=== PATIENT | female | born 1940 | race Caucasian/White ===

== ENCOUNTER 2019-12-17 12:18 | Inpatient (IN) ==
--- NOTE | 2019-12-17 12:43 | Emergency Department Note ---
Impression & Plan Hip fracture, right, Dementia ED Provider Note NAME: LAZARA VALLEJO AGE: 79 SEX: F : 1940 ARRIVES VIA: Ambulance INFORMANT: Patient ED PROVIDER(S): Pritesh Dumont DO CHIEF COMPLAINT: Fall down steps HPI: Patient is a 79-year-old female who lives at home with her son with a past medical history of dementia that presents the ER for a fall. She notes she was walking down the steps carrying stuff in her arms when she lost her balance and fell backwards. She hit her head off the step and is having right hip pain. She has no other complaints. She describes her pain as a 5 out of 10. Pain is worsened with movement of her right hip. Rest improves the pain. She denies any headache change in vision, chest pain shortness of breath nausea vomiting or diarrhea. No dysuria urgency or frequency. She notes that she does have a bump on her head. She notes that this occurred just prior to arrival [place] [address] [place]. ROS: See above HPI for pertinent positives & negatives. A total of 10 systems reviewed and were otherwise negative. PAST MEDICAL HISTORY:See Below PAST SURGICAL HISTORY:See Below FAMILY HISTORY:See Below SOCIAL HISTORY:See Below HOME MEDICATIONS:See Below ALLERGIES:See Below VITALS:See Below PHYSICAL EXAMINATION: GENERAL: alert, well appearing, well nourished, no distress, non-toxic HEAD: Contusion in the right occiput. EYE EXAM: normal conjunctiva, PERRL and EOM's grossly intact OROPHARYNX: no exudate, no erythema, lips, buccal mucosa, and tongue normal and mucous membranes are moist NECK: supple, no nuchal rigidity, no adenopathy, non-tender CHEST: stable to compression anteriorly and posteriorly LUNGS: clear to auscultation. Normal chest wall mechanics HEART: no murmurs, S1 normal and S2 normal ABDOMEN: abdomen soft, non-tender, normo-active bowel sounds, no masses, no rebound or guarding. PELVIS: stable to compression anteriorly and posteriorly BACK: Back is symmetrical on inspection and there is no deformity, no midline tenderness, no CVA tenderness. UPPER EXTREMITIES: full active and passive range of motion of all joints without tenderness to palpation LOWER EXTREMITIES: Full active and passive range of motion without tenderness of the left hip knee ankle. Right ankle and knee intact. Right hip is externally rotated. Moderate pain with range of motion. DP 2 out of 4. Gross sensation intact. Able to wiggle toes. NEURO EXAM: At baseline answering questions appropriately, cranial nerves II-XII grossly intact, normal speech, no gross weakness of arms, no gross weakness of legs. GCS: 15. MEDICAL DECISION MAKING: Patient is an 79-year-old female who presents the ER as she was walking down steps carrying stuff in her arms and she slipped and fell. She notes she did not lose consciousness. Her daughter did not witness it but was about 5 feet away. She fell down on her back and her head hit the wall. She complaining of right hip pain. IV was established blood work was obtained. Labs show no significant leukocytosis or anemia. BMP along with LFTs bilirubin was unremarkable. UA was negative. CT of the head and cervical spine showed no acute fractures. X-ray of the pelvis shows right inner troches fracture. Daughter was updated bedside. Discussed with hospitalist as well as Dr. Moss from [facility]. Patient was admitted for a right hip fracture. Triage Nursing notes reviewed. Prior medical records reviewed Vital Signs: reviewed and remarkable for no significant abnormalities Differential diagnosis: Differential diagnoses include major intracranial, cervical, spinal, thoracic, abdominal, pelvic and neurologic injury. Fracture, contusion, sprain, strain, laceration, abrasions included as well. ER treatment provided: See below Diagnostics interpreted by me: ECG: none Cardiac Monitoring: An order was placed for continuous cardiac monitoring. The monitor shows a rate of 71 with sinus rhythm. Laboratory studies: As stated above and show below. Imaging studies: CT of the head and cervical spine showed no acute fractures. X-ray of the pelvis and hip show right inner troches fracture. Consultation(s): Discussed with Dr. Pollock from [facility] [place] Discussed with orthopedics. 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 Beliefs That Will Affect Care: None Current Living Situation: Family Current Living Situation Comment: lives with daughter and her fiancee, and son Other Information That Helps Us Care for You: No Feels Safe at Home: Yes Safety Concerns: Feels Safe At This Time Smoking Status: Never smoker Do You Dip or Chew Tobacco: No ; Second Hand Exp osure: No ; Tobacco Cessation Education Requested by Patient: No Hx Alcohol Use: No Hx Substance Use: No Allergies Allergies Allergy/AdvReac Type Severity Reaction Status Date / Time No Known Allergies Allergy Unknown Verified 12/17/19 13:21 Home Meds Home Medications Medication Instructions Recorded Confirmed metoprolol succinate [Toprol XL] 50 mg PO DAILY #0 03/21/06 12/17/19 spironolacton-hydrochlorothiaz 1 tab PO DAILY #0 03/21/06 12/17/19 [Aldactazide] memantine [Namenda] 10 mg PO BID 12/17/19 12/17/19 mirtazapine [Remeron] 30 mg PO HS 12/17/19 12/17/19 quetiapine [Seroquel] 25 mg PO BID 12/17/19 12/17/19 Results & Data (ED) Vital Signs Vital Signs - 24 hr 12/17/19 12:29 Temperature 36.5 C Temperature Source Oral Pulse Rate 76 Pulse Rhythm Regular Pulse Strength Normal Respiratory Rate 20 Respiratory Effort / Characteristics Non-Labored Spontaneous Respiratory Depth Normal Respiratory Pattern Regular Blood Pressure 143/77 H Blood Pressure Mean 99 Pulse Oximetry 98 Oxygen Delivery Method Room Air Sepsis Recent Fever Within 48 Hours No Sepsis Action Taken by Nursing No Action Required Laboratory Data Result diagrams: 12/17/19 13:52 12/17/19 13:52 Lab Results 12/17/19 12/17/19 Range/Units 13:52 13:52 WBC 11.57 H (4.8-10.8) K/uL RBC 4.56 (4.2-5.4) M/uL Hgb 13.6 (12.0-16.0) g/dL Hct 41.3 (37-47) % MCV 90.6 (80-100) fL MCH 29.8 (25-34) pg MCHC 32.9 (32-36) g/dL RDW Std Deviation 45.7 (36.4-46.3) fL RDW Coeff of Cydni 13.8 (11.5-14.5) % Plt Count 262 (130-400) K/uL MPV 10.2 (7.4-10.4) fL Immature Gran % (Auto) 0.3 % Neut % (Auto) 82.5 % Lymph % (Auto) 10.0 % Stephens % (Auto) 7.0 % Eos % (Auto) 0.2 % Baso % (Auto) 0.0 % Immature Gran # (Auto) 0.04 H (0.00-0.02) K/uL Neut # (Auto) 9.54 H (1.4-6.5) K/uL Lymph # (Auto) 1.16 L (1.2-3.4) K/uL Stephens # (Auto) 0.81 H (0.11-0.59) K/uL Eos # (Auto) 0.02 (0-0.5) K/uL Baso # (Auto) 0.00 (0-0.2) K/uL Sodium 141 (136-145) mmol/L Potassium 3.8 (3.5-5.1) mmol/L Chloride 106 (98-107) mmol/L Carbon Dioxide 27 (21-32) mmol/L Anion Gap 8.0 (3-11) BUN 23 H (7-18) mg/dl Creatinine 1.18 (0.6-1.2) mg/dl Est Cr Clr Drug Dosing 33.9 ml/min Est GFR ( Amer) 50.1 Est GFR (Non-Af Amer) 43.2 BUN/Creatinine Ratio 19.4 (10-20) Glucose 94 (70-99) mg/dl Calcium 9.9 (8.5-10.1) mg/dl Total Bilirubin 0.5 (0.2-1) mg/dl AST 17 (15-37) U/L ALT 23 (12-78) U/L Alkaline Phosphatase 79 (45-117) U/L Total Protein 8.0 (6.4-8.2) gm/dl Albumin 3.8 (3.4-5.0) gm/dl Globulin 4.2 H (2.5-4.0) gm/dl Albumin/Globulin Ratio 0.9 (0.9-2) Administered Medications Lactated Ringer's (Lr) 1,000 mls @ 80 mls/hr IV .[id number] MARK Stop: 12/18/19 03:29 Last Admin: 12/17/19 14:58 Dose: 80 mls/hr Documented by: [id number] Morphine Sulfate (Morphine Sulfate) 0.5 mg IV Q4 PRN PRN Reason: Pain Stop: 12/31/19 14:44 Last Admin: 12/17/19 15:17 Dose: 0.5 mg Documented by: [id number] Discharge Plan Visit Data *Final* Discharge Date/Time: 12/17/19 14:19 Chief Complaint: Fall ED Provider: Pritesh Dumont Discharge Problem: Hip fracture, right, Dementia Patient Disposition: Admitted As Inpatient Discharge Instructions Interventions: ED Discharge Assessment Last Done: 12/17/19 14:19 Discharge Problem: Hip fracture, right Qualifiers: Encounter type: initial encounter Fracture type: closed Qualified Code(s): S72.001A - Fracture of unspecified part of neck of right femur, initial encounter for closed fracture Dementia Qualifiers: Dementia type: unspecified type Dementia behavioral disturbance: without behavioral disturbance Qualified Code(s): F03.90 - Unspecified dementia without behavioral disturbance
--- NOTE | 2019-12-17 13:18 | XRay Report ---
XR chest 1V portable CLINICAL HISTORY: fall COMPARISON STUDY: No previous studies for comparison. FINDINGS: The bones soft tissues and hemidiaphragms are normal. The cardiomediastinal silhouette is n ormal. The lungs are clear. The pulmonary vasculature is normal. IMPRESSION: Negative chest. ACT 112: Negative or not required by law. The above report was generated using voice recognition software. It may contain grammatical, syntax or spelling errors. Electronically signed by: Conner Tong M.D. 12/17/2019 1:17 PM
--- NOTE | 2019-12-17 13:19 | XRay Report ---
XR hip RT 2V w pelvis CLINICAL HISTORY: r hip pain COMPARISON: None. DISCUSSION: Slightly comminuted intertrochanteric fracture right hip. No evidence for acetabular prot rusion. There is no evidence for soft tissue swelling. IMPRESSION: Intertrochanteric fracture right hip. ACT 112: Negative or not required by law. The above report was generated using voice recognition software. It may contain grammatical, syntax or spelling errors. Electronically signed by: Conner Tong M.D. 12/17/2019 1:18 PM
--- NOTE | 2019-12-17 13:45 | CT Scan Report ---
CT head/brain wo con CT DOSE: HISTORY: Trauma fall TECHNIQUE: Multiaxial CT images of the head were performed without the use of intravenous contrast. A dose lowering technique was utilized adhering to the principles of ALARA. Comparison: None. Findings: The paranasal sinuses and mastoid air cells are clear. The calvarium and skull base are int act. The ventricles and sulci are within normal limits. There is no mass, hematoma, midline shift, or acute infarct. Impression: No acute intracranial abnormality. Age-related atrophy and chronic small vessel change. ACT 112: Negative or not required by law. The above report was generated using voice recognition software. It may contain grammatical, syntax or spelling errors. Electronically signed by: Conner Tong M.D. 12/17/2019 1:44 PM
--- NOTE | 2019-12-17 13:47 | CT Scan Report ---
CT cervical spine wo con CT DOSE: 850.67 mGy.cm HISTORY: Trauma. Pain. fall TECHNIQUE: Multiaxial CT images of the cervical spine were performed and reformatted in the sagittal and coronal plane without the use of contrast. A dose lowering technique was utilized adhering to th e principles of ALARA. COMPARISON: None. FINDINGS: No fractures. No subluxation. Prevertebral soft tissues and the C1-C2 interval are intact. No pneumothorax. IMPRESSION: No fractures within the cervical spine. Moderate generalized degenerative change. ACT 112: Negative or not required by law. The above report was generated using voice recognition software. It may contain grammatical, syntax or spelling errors. Electronically signed by: Conner Tong M.D. 12/17/2019 1:45 PM
[2019-12-17 14:06] LABS: Eosinophils # (auto) 0.02 K/uL (0-0.5); Eosinophils % (auto) 0.2 %; Hematocrit (blood only) 41.3 % (37-47); Hemoglobin 13.6 g/dL (12.0-16.0); Immature Granulocytes # (auto) 0.04 K/uL (0.00-0.02); Immature Granulocytes % (auto) 0.3 %; Lymphocytes # (auto) 1.16 K/uL (1.2-3.4); Mean Corpuscular Hemoglobin 29.8 pg (25-34); Mean Corpuscular Hgb Conc 32.9 g/dL (32-36); Mean Corpuscular Volume 90.6 fL (80-100); Mean Platelet Volume 10.2 fL (7.4-10.4); Monocytes # (auto) 0.81 K/uL (0.11-0.59); Neutrophils # (auto) 9.54 K/uL (1.4-6.5); Neutrophils % (auto) 82.5 %; Platelet Count 262 K/uL (130-400); RDW Coefficient of Variation 13.8 % (11.5-14.5); RDW Standard Deviation 45.7 fL (36.4-46.3); Red Blood Count 4.56 M/uL (4.2-5.4); White Blood Count 11.57 K/uL (4.8-10.8)
[2019-12-17] MEDS ORDERED: PNEUMOCOCCAL POLYSACCHARIDES 25 MCG/0.5 ML VIAL/SYR IM ONE (14:09)
[2019-12-17] MEDS ORDERED: PNEUMOCOCCAL ADMINISTRATION CHARGE ONE (14:09)
[2019-12-17 14:16] LABS: INR 1.1 (0.9-1.1); Prothrombin Time 11.8 Seconds (9.0-12.0)
[2019-12-17 14:23] LABS: Albumin Level 3.8 gm/dl (3.4-5.0); BUN Creatinine Ratio 19.4 (10-20); Calcium 9.9 mg/dl (8.5-10.1); Creatinine Clr Calc Pharmacy 33.9 ml/min; Est GFR (African American) 50.1; Est GFR (Non-African American) 43.2; Potassium 3.8 mmol/L (3.5-5.1)
[2019-12-17 14:26] LABS: Albumin Globulin Ratio 0.9 (0.9-2); Bilirubin,Total 0.5 mg/dl (0.2-1); Globulin 4.2 gm/dl (2.5-4.0)
[2019-12-17 14:38] LABS: Appearance Urine Clear (Clear); Bilirubin Urine Negative (Negative); Blood Urine Negative (Negative); Color Urine Yellow; Glucose Urine UA Negative (Negative); Ketones Urine 1+ (Negative); Leukocyte Esterase Urine Negative (Negative); Nitrite Urine Negative (Negative); Protein Urine Negative (Negative); Specific Gravity Urine 1.022 (1.000-1.030); Urobilinogen Urine Negative (Negative); pH Urine 5.5 (4.5-7.5)
--- NOTE | 2019-12-17 14:41 | History & Physical Report ---
Date of Service December 17, 2019 Assessment & Plan (1) Hip fracture, right: Patient sustained fall earlier today after losing balance/tripping on steps X-ray shows right intertrochanteric fracture Incident appears to be accidental/mechanical fall, no symptoms of shortness of breath, strokelike symptoms, chest pain prior or after falls Patient will be admitted to medical floor Orthopedic consult requested Morphine 0.5 mg every 4 hours as needed for pain, pain medication can be titrated pre-and postop Patient has advanced directive/living will stating DNR/DNI Family is okay for mechanical ventilation during surgical procedure for hip repair Preop ordered for n.p.o. past midnight Preop clearance: Patient has acceptable risk to proceed for surgical hip repair No prior history of coronary disease/congestive heart failure /no cardiac or respiratory disease, Blood pressure well controlled Does not need any other cardiac studies, or imaging prior to procedure Patient should be given p.o. metoprolol in a.m. preop with sips of water Hypertension: Blood pressure well controlled, Continue Toprol-XL 50 mg daily We will hold diuretics: Aldactone -hydrochlorothiazide to prevent dehydration, acute renal failure postoperatively All usual antihypertensives can be resumed once patient clinically recovered surgery (2) Dementia: Oriented to place and person baseline dementia Per family members patient has been independent in ADLs Caution for : Hospital-acquired delirium, due to acute hospitalization /surgical procedure/anesthesia Ordered for fall precaution, bed alarm Frequent orientation, Patient's home meds Namenda Seroquel Remeron will be continued Avoid benzodiazepine for agitation can cause rebound effect. CODE STATUS: DNR/DNI DVT prophylaxis: SCD and teds preop Post hip fracture patient will need pharmacological anticoagulation-per orthopedics protocol due to high risk of DVT post hip surgery Disposition: Patient will need PT OT evaluation post hip surgery per orthopedics Lives at home with family, May need rehab depending on her recovery post surgery Patient follows with family physician Dr. Shabazz at [facility] Plan of care discussed with patient's POA daughter Massiel Mir/son Daniel Mir Agreeable and comfortable with plan of care Admission and Anticipated Discharge Date Admission Date: December 17, 2019 History of Present Illness Chief Complaint: right hip pain , after fall Primary Care Provider: Isidoro Shabazz, DO This is a 79-year-old female with past medical history of dementia, hypertension, who sustained a fall this morning after going down the steps. Patient lives with her son and daughter Information obtained from patient's daughter Massiel Mir present at bedside . Patient was climbing down the stairs to the first floor carrying a plate At the end of the stairs she apparently tripped and fell. Daughter found her on the bottom of the stairs after hearing the sound, Patient was awake and alert, complained of right hip pain, There was no complaint of shortness of breath, chest pain, dizzy spell or lightheadedness prior or after the fall Patient did not had any recent illness, no fever chills or cough. At baseline patient is oriented to place, person, recognizes family members, independent in her ADLs Does not have any significant ambulatory dysfunction, does not require cane or walker Family recalls patient sustained a fall months before for the similar reason of tripping over steps while trying to carry objects. In the ER patient was comfortable, awake and alert able to answer questions, vitals stable X-ray of hip shows right intertrochanteric fracture. Allergies Allergy/AdvReac Type Severity Reaction Status Date / Time No Known Allergies Allergy Unknown Verified 12/17/19 13:21 Home Medications Home Medications Medication Instructions Recorded Confirmed Type metoprolol succinate [Toprol XL] 50 mg PO DAILY #0 03/21/06 12/17/19 History spironolacton-hydrochlorothiaz 1 tab PO DAILY #0 03/21/06 12/17/19 History [Aldactazide] memantine [Namenda] 10 mg PO BID 12/17/19 12/17/19 History mirtazapine [Remeron] 30 mg PO HS 12/17/19 12/17/19 History quetiapine [Seroquel] 25 mg PO BID 12/17/19 12/17/19 History Past Med/Surg History Social History Preferred Language: Dominican Communication Ability: Effective Communication Ability Comment: history of Alzheimer's 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 Beliefs That Will Affect Care: None Current Living Situation: Family Current Living Situation Comment: lives with daughter and her fiancee, and son Other Information That Helps Us Care for You: No Feels Safe at Home: Yes Safety Concerns: Feels Safe At This Time Smoking Status: Never smoker Do You Dip or Chew Tobacco: No ; Second Hand Exposure: No ; Tobacco Cessation Education Requested by Patient: No Hx Alcohol Use: No Hx Substance Use: No Review of Systems Review of Systems: All systems reviewed & are unremarkable except as noted in HPI & below Respiratory: no cough, no dyspnea, no dyspnea on exertion, no sputum production and no wheezing Cardiovascular: no chest pain, no dyspnea, no dyspnea on exertion, no orthopnea, no palpitations and no syncope Musculoskeletal: + joint pain (right hip pain ) fall leading to right hip fracture Physical Exam Constitutional: WD/WN, vitals as above + thin; no acute distress Eyes: + anicteric sclerae ENMT: external ear and nose normal, oropharynx normal Neck: trachea midline, no thyromegaly Respiratory: normal respiratory effort, lungs clear to auscultation Cardiovascular: RRR, no murmur, no edema Gastrointestinal (Abdomen): Inspection/Auscultation: normal bowel sounds Percussion/Palpation: abdomen soft; abdomen nontender Musculoskeletal: Head/Neck/Chest: normocephalic, head atraumatic and neck supple tenderness on right hip area Neurologic: PERRL, EOMI, accommodation nl, no face palsy, no dysarthria Psychiatric: Orientation: alert; + not oriented x 3 (baseline dementia , oriented to place and person only ) Affect: + flat affect Results & Data Results & Data ([facility]) Vital Signs (Past 12 Hours) Vital Signs Temp Pulse Resp BP Pulse Ox 12/17/19 14:19 74 18 120/70 99 12/17/19 12:29 36.5 C 76 20 143/77 H 98 Diagnostic Findings XR hip RT 2V w pelvis CLINICAL HISTORY: r hip pain COMPARISON: None. DISCUSSION: Slightly comminuted intertrochanteric fracture right hip. No evidence for acetabular protrusion. There is no evidence for soft tissue swelling. IMPRESSION: Intertrochanteric fracture right hip. Code Status & VTE Plan Code Status DNR/DNI , PATIENT HAS A LIVING WILL VTE Prophylaxis Plan VTE Prophylaxis will be ordered: Yes
[2019-12-17] MEDS ORDERED: NITROGLYCERIN SL 0.4 MG/TAB TAB SL PRN (14:45)
[2019-12-17] MEDS ORDERED: ALUMINUM/MAGNESIUM SUSP 30 ML UDC PO PRN (14:45)
[2019-12-17] MEDS ORDERED: POLYETHYLENE (MIRALAX) 17 GM PACK PO PRN (14:45)
[2019-12-17] MEDS ORDERED: ONDANSETRON INJ 2 MG/ML 2 ML VIAL IV PRN (14:45)
[2019-12-17] MEDS ORDERED: MAGNESIUM HYDROXIDE SUSP 30 ML UDC PO PRN (14:45)
[2019-12-17] MEDS ORDERED: LACTATED RINGER'S 1,000 ML IV SCH (15:00)
[2019-12-17] MEDS: MoRPHine SULFATE 2 MG/ML CARP IV PRN (15:17)
--- NOTE | 2019-12-17 19:34 | XRay Report ---
XR femur RT 2V routine CLINICAL HISTORY: right hip fracture, trauma COMPARISON: Same date DISCUSSION: Improved bony alignment. Intertrochanteric fracture right hip again noted. No evidence di slocation. The remainder the femur is unremarkable. IMPRESSION: Improved alignment. Intertrochanteric fracture right hip again noted. ACT 112: Negative or not required by law. The above report was generated using voice recognition software. It may contain grammatical, syntax or spelling errors. Electronically signed by: Conner Tong M.D. 12/17/2019 7:32 PM
[2019-12-17] MEDS: MEMANTINE HCL 10 MG TAB PO SCH (20:16)
[2019-12-17] MEDS: QUETIAPINE FUMARATE 25 MG TABLET PO SCH (20:16)
[2019-12-17] MEDS: MIRTAZAPINE TAB 15 MG TAB PO SCH (20:16)
[2019-12-18] MEDS: MoRPHine SULFATE 2 MG/ML CARP IV PRN ×3 (03:21→16:24)
--- NOTE | 2019-12-18 06:50 | Hospitalist Progress Note ---
Date of Service December 18, 2019 Assessment & Plan (1) Hip fracture, right: Patient sustained fall 12/16 after losing balance/tripping on steps X-ray shows right intertrochanteric fracture Incident appears to be accidental/mechanical fall, no symptoms of shortness of breath, strokelike symptoms, chest pain prior or after falls Orthopedics to see Morphine 0.5 mg every 4 hours as needed for pain, pain medication can be titrated pre-and postop Patient has advanced directive/living will stating DNR/DNI Family is okay for mechanical ventilation during surgical procedure for hip repair Preop ordered for n.p.o. past midnight Preop clearance: Patient has acceptable risk to proceed for surgical hip repair No prior history of coronary disease/congestive heart failure /no cardiac or respiratory disease, Blood pressure well controlled Does not need any other cardiac studies, or imaging prior to procedure Patient should be given p.o. metoprolol in a.m. preop with sips of water Hypertension: Blood pressure well controlled, Continue Toprol-XL 50 mg daily We will hold diuretics: Aldactone -hydrochlorothiazide to prevent dehydration, acute renal failure postoperatively All usual antihypertensives can be resumed once patient clinically recovered surgery (2) Dementia: Oriented to place and person baseline dementia Per family members patient has been independent in ADLs Caution for : Hospital-acquired delirium, due to acute hospitalization /surgical procedure/anesthesia Ordered for fall precaution, bed alarm Frequent orientation, Patient's home meds Namenda Seroquel Remeron will be continued Avoid benzodiazepine for agitation can cause rebound effect. CODE STATUS: DNR/DNI DVT prophylaxis: SCD and teds preop Post hip fracture patient will need pharmacological anticoagulation-per orthopedics protocol due to high risk of DVT post hip surgery Disposition: Patient will need PT OT evaluation post hip surgery per orthopedics Lives at home with family, May need rehab depending on her recovery post surgery Labs checked ROS-No Headache, No Visual Changes, No Nausea, No Vomiting, No Fever, No Chills, No Neck Pain or Stiffness, No Chest Pain, No Palpitations, No SOB, No STEPHENSON, No Cough, No Sputum, No Wheezing, No Abdominal Pain, No Diarrhea, No Hematemesis, No Hemoptysis, No Unexpected Weight Loss, No Flank pain, No Melena, No Hematochezia, No Frequency, No Urgency, No Burning, No Hematuria, No Rashes, No Diaphoresis. Appetite is Normal Physical Exam Gen-AAO x 3, NAD, Afebrile Head-NCAT, EOMI, PERRLA, Anicteric Sclera, No Posterior Pharyngeal Erythema Neck-Supple, No JVD, No Thyromegaly, No Masses, No LAD, No Bruits Lungs-Clear to Auscultation Bilaterally, No Rales, No Rhonchi, No Wheezing, No Crepitus Chest-No S4, +S1, +S2, No S3, No Murmurs, No Rubs, No Gallops, No Ectopy Abdomen-Soft, Bowel Sounds Present, Non Tender, Non Distended, No Hepatomegaly, No Splenomegaly, No Palpable Masses, No Rebound, No Rigidity, No Guarding Musculoskeletal-Full Range of Motion Bilaterally, No CVAT Extremities-No Cyanosis, No Clubbing, No Edema, R ext leg rotation Nuero-Cranial Nerves II-XII grossly intact, Motor WNL, DTRs WNL, Strength WNL, Non Focal Psych-Normal Mood Admission and Anticipated Discharge Date Admission Date: December 17, 2019 Anticipated date of discharge: 12/20/19 Results & Data Results & Data ([facility]) Vital Signs (Past 12 Hours) Vital Signs Temp Pulse Pulse Resp BP Pulse Ox 12/18/19 04:00 37.2 C 82 18 128/78 93 12/18/19 00:55 88 12/17/19 23:24 37.5 C 85 16 126/79 96 (1) Dementia Dementia behavioral disturbance: without behavioral disturbance Dementia type: unspecified type Qualified Code(s): F03.90 - Unspecified dementia without behavioral disturbance (2) Hip fracture, right Encounter type: initial encounter Fracture type: closed Qualified Code(s): S72.001A - Fracture of unspecified part of neck of right femur, initial encounter for closed fracture
[2019-12-18 07:12] LABS: Hematocrit (blood only) 37.8 % (37-47); Hemoglobin 12.8 g/dL (12.0-16.0); Mean Corpuscular Hemoglobin 30.2 pg (25-34); Mean Corpuscular Hgb Conc 33.9 g/dL (32-36); Mean Corpuscular Volume 89.2 fL (80-100); Mean Platelet Volume 10.3 fL (7.4-10.4); Platelet Count 238 K/uL (130-400); RDW Coefficient of Variation 13.8 % (11.5-14.5); RDW Standard Deviation 45.4 fL (36.4-46.3); Red Blood Count 4.24 M/uL (4.2-5.4); White Blood Count 13.02 K/uL (4.8-10.8)
[2019-12-18 07:38] LABS: BUN Creatinine Ratio 19.2 (10-20); Creatinine Clr Calc Pharmacy 41.4 ml/min; Est GFR (African American) 64.3; Est GFR (Non-African American) 55.5; Potassium 3.1 mmol/L (3.5-5.1)
[2019-12-18] MEDS: QUETIAPINE FUMARATE 25 MG TABLET PO SCH ×2 (07:38→21:06)
[2019-12-18] MEDS: METOPROLOL SUCC 50MG EXT REL TAB PO SCH (07:38)
[2019-12-18] MEDS: MEMANTINE HCL 10 MG TAB PO SCH ×2 (07:38→21:07)
[2019-12-18] MEDS ORDERED: MIDAZOLAM HCL 1 MG/ML 2ML VIAL ONE (09:49)
[2019-12-18] MEDS ORDERED: CEFAZOLIN 1,000 MG/7.5 ML IV PUSH IV ONE (09:57)
--- NOTE | 2019-12-18 10:11 | Orthopedic Consultation ---
Date of Consultation December 18, 2019 Assessment & Plan (1) Hip fracture, right: The patient is a 79yo female with displaced right intertrochanteric hip fracture sustained after a fall from standing height. The patient was medically stabilized on 12/18/2019. I indicated the patient for right hip cephalomedullary nail. The patient and son and daughter who I talked to over telephone was informed of the risks and benefits of surgery, which include but not limited to infection, bleeding, blood clots, damage to nerves, vessels, bone and soft tissue, dislocation, leg length discrepancy, malunion, nonunion, failure of the implants, need for additional surgery and . The patient and family collectively chose to proceed with surgical intervention and informed consent was obtained. History of Present Illness Reason for Consultation: Right intertrochanteric hip fracture Attending Physician: Davy Estrada DO History of Present Illness The patient is an 79-year-old female who presented to [facility] secondary to a fall from standing height on 12/17/2019. Patient is a poor historian and has underlying dementia. X-rays taken in the emergency department demonstrated a displaced right intertrochanteric hip fracture. Patient was admitted for further intervention and treatment. Patient pain is well controlled denies any associated injuries denies numbness and tingling right lower extremity. Denies hitting head or loss of consciousness. Allergies Allergy/AdvReac Type Severity Reaction Status Date / Time No Known Allergies Allergy Unknown Verified 12/17/19 13:21 Home Medications Home Medications Medication Instructions Recorded Confirmed Type metoprolol succinate [Toprol XL] 50 mg PO DAILY #0 03/21/06 12/17/19 History spironolacton-hydrochlorothiaz 1 tab PO DAILY #0 03/21/06 12/17/19 History [Aldactazide] memantine [Namenda] 10 mg PO BID 12/17/19 12/17/19 History mirtazapine [Remeron] 30 mg PO HS 12/17/19 12/17/19 History quetiapine [Seroquel] 25 mg PO BID 12/17/19 12/17/19 History Patient History Medical History No pertinent past medical history Surgical History No pertinent past surgical history Social History Preferred Language: Beninese Communication Ability: Effective Communication Ability Comment: history of Alzheimer's 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 Beliefs That Will Affect Care: None Current Living Situation: Family Current Living Situation Comment: lives with daughter and her fiancee, and son Other Information That Helps Us Care for You: No Feels Safe at Home: Yes Safety Concerns: Feels Safe At This Time Smoking Status: Never smoker Do You Dip or Chew Tobacco: No ; Second Hand Exposure: No ; Tobacco Cessation Education Requested by Patient: No Hx Alcohol Use: No Hx Substance Use: No Review of Systems Review of Systems: All systems reviewed & are unremarkable except as noted in HPI & below Constitutional: as per Subjective / HPI Physical Exam Physical Exam: RLE NVSI +EHL/FHL/TA/GS SILT grossly, +2 DP pulse, compartments soft NT, short externally rotated. Constitutional: WD/WN, vitals as above Results & Data ([facility]) Vital Signs (Past 12 Hours) Vital Signs Temp Pulse Pulse Resp BP Pulse Ox 12/18/19 09:35 37.3 C 78 21 121/61 96 12/18/19 07:15 36.8 C 81 18 112/74 95 12/18/19 07:00 82 12/18/19 04:00 37.2 C 82 18 128/78 93 12/18/19 00:55 88 12/17/19 23:24 37.5 C 85 16 126/79 96 Diagnostic Findings XR hip RT 2V w pelvis CLINICAL HISTORY: r hip pain COMPARISON: None. DISCUSSION: Slightly comminuted intertrochanteric fracture right hip. No evidence for acetabular protrusion. There is no evidence for soft tissue swelling. IMPRESSION: Intertrochanteric fracture right hip. ACT 112: Negative or not required by law. XR femur RT 2V routine CLINICAL HISTORY: right hip fracture, trauma COMPARISON: Same date DISCUSSION: Improved bony alignment. Intertrochanteric fracture right hip again noted. No evidence dislocation. The remainder the femur is unremarkable. IMPRESSION: Improved alignment. Intertrochanteric fracture right hip again noted. ACT 112: Negative or not required by law. (1) Hip fracture, right Encounter type: initial encounter Fracture type: closed Qualified Code(s): S72.001A - Fracture of unspecified part of neck of right femur, initial encounter for closed fracture
--- NOTE | 2019-12-18 10:11 | History & Physical Bridge Note ---
Date of Service December 18, 2019 History & Physical Bridge Note I have examined the patient, reviewed the History & Physical and in the interval since the performance of the History & Physical I have noted the following changes of clinical significance: no changes noted
[2019-12-18] MEDS ORDERED: ePHEDrine sulfate 50 MG/ML AMP IV PRN (10:24)
[2019-12-18] MEDS ORDERED: ONDANSETRON INJ 2 MG/ML 2 ML VIAL IV PRN (10:24)
[2019-12-18] MEDS ORDERED: fentaNYL citrate 100 MCG/2 ML VIAL IV PRN (10:24)
[2019-12-18] MEDS ORDERED: ATROPINE SULFATE 0.1 MG/ML 10ML SYR IV PRN (10:24)
--- NOTE | 2019-12-18 10:24 | Anesthesiology Consultation ---
Date of Service December 18, 2019 Assessment & Plan (1) Encounter for pre-operative examination: Chart Review Chart Review: Acceptable Risk for Surgery and Patient NOT seen in Pre Admission Testing Consults Requested none ASA ASA3 Proposed Anesthesia Anesthesia Type: MAC Spinal Risk / Benefits Reviewed With: PT / POA / Parent / Guardian, Accepts Plan and Informed Consent Obtained History Surgery Operation Date: 12/18/19 09:45 Proposed Procedures p Right Troch Nail - Lacho R Kirk, Height/Weight Height: 5 ft 2 in Weight: 67.5 kg Allergies Allergy/AdvReac Type Severity Reaction Status Date / Time No Known Allergies Allergy Unknown Verified 12/17/19 13:21 Medications Home Medications Medication Instructions Recorded Confirmed Last Taken metoprolol succinate [Toprol XL] 50 mg PO DAILY #0 03/21/06 12/17/19 12/17/19 spironolacton-hydrochlorothiaz 1 tab PO DAILY #0 /09/2112/17/19 12/17/19 [Aldactazide] memantine [Namenda] 10 mg PO BID 12/17/19 12/17/19 12/17/19 mirtazapine [Remeron] 30 mg PO HS 12/17/19 12/17/19 12/16/19 quetiapine [Seroquel] 25 mg PO BID 12/17/19 12/17/19 12/17/19 Active Medications Generic Name Dose Route Start Last Admin Trade Name Joshq PRN Reason Stop Dose Admin Memantine 10 mg 12/17/19 21:00 12/18/19 07:38 Namenda PO 01/16/20 20:59 10 mg BID MARK Administration Metoprolol Succinate 50 mg 12/18/19 09:00 12/18/19 07:38 Toprol Xl PO 01/17/20 08:59 50 mg DAILY MARK Administration Mirtazapine 30 mg 12/17/19 21:00 12/17/19 20:16 Remeron PO 01/16/20 20:59 30 mg HS MARK Administration Morphine Sulfate 0.5 mg 12/17/19 14:45 12/18/19 07:43 Morphine Sulfate IV 12/31/19 14:44 0.5 mg Q4 PRN Administration Pain Quetiapine Fumarate 25 mg 12/17/19 21:00 12/18/19 07:38 Seroquel PO 01/16/20 20:59 25 mg BID MARK Administration NPO Date Last Intake of Fluids: 12/18/19 Time Last Intake of Fluids: 07:38 Last Intake of Fluids Comment: Am w/ small sips. Date Last Intake of Solids: 12/17/19 Time Last Intake of Solids: 16:00 Last Intake of Solids Comment: Per report this am. Past Medical History Medical History No pertinent past medical history Exercise / Class Metabolic Activity II 4-5 Yardwork/Stairs/Walk up hill Past Surgical History Surgical History No pertinent past surgical history Past Anesthesia History No Hx of Anesthesia Complications and No Family Hx of Anesthesia Complications History of PONV No Hx of PONV and No Hx of Motion Sickness Social History Smoking Status: Never smoker Do You Dip or Chew Tobacco: No Hx Alcohol Use: No Hx Substance Use: No substance use type: does not use Physical Exam Vital Signs Last Vital Signs Temp 37.3 C 12/18/19 09:35 Pulse 78 12/18/19 09:35 Resp 21 12/18/19 09:35 BP 121/61 12/18/19 09:35 Pulse Ox 96 12/18/19 09:35 ENMT Mouth: no dentition abnormality Thyromental Distance: > or= 3.5 Finger Breadths Mallampati Class: II Neck normal visual inspection Respiratory normal respiratory effort Auscultation: lungs clear to auscultation bilaterally Cardiovascular Rate/Rhythm: regular rate and regular rhythm Psychiatric Orientation: alert Testing Laboratory Results 12/18/19 06:43 12/18/19 06:43 PT 11.8 Seconds (9.0-12.0) 12/17/19 13:59 INR 1.1 (0.9-1.1) 12/17/19 13:59 Urine Color Yellow 12/17/19 14:00 Urine Appearance Clear (Clear) 12/17/19 14:00 Urine pH 5.5 (4.5-7.5) 12/17/19 14:00 Ur Specific [place] 1.022 (1.000-1.030) 12/17/19 14:00 Urine Protein Negative (Negative) 12/17/19 14:00 Urine Glucose (UA) Negative (Negative) 12/17/19 14:00 Urine Ketones 1+ (Negative) H 12/17/19 14:00 Urine Nitrite Negative (Negative) 12/17/19 14:00 Ur Leukocyte Esterase Negative (Negative) 12/17/19 14:00
[2019-12-18] MEDS ORDERED: BUPIVACAINE 0.5 % 5 MG/1 ML MPF 30ML VIAL ONE (10:55)
[2019-12-18] MEDS ORDERED: EPINEPHrine INJ 1 MG/ML AMP ONE (10:55)
--- NOTE | 2019-12-18 12:02 | Post Operative Brief Note ---
Immediate Post Op Note v1 Date of Surgery December 18, 2019 Pre & Post Diagnosis Operation Date: 12/18/19 09:45 Pre-Op Diagnosis: Right hip fracture Post-Op Diagnosis: Right hip fracture I identified the patient and participated in the time-out.: Yes Procedure Operation Date: 12/18/19 09:45 Actual Procedures p Right Hip Cephalomedullary Nail(Right) - Lacho Bradley DO Surgeon Lacho Bradley DO Boiler Reliner None Estimated Blood Loss 10 Findings Consistent with Post-Op Diagnosis Fluids 1 L Specimens None Anesthesia Type Spinal MAC Complications none Disposition Disposition: Recovery Room Overlapping Procedure I was present for: the critical portions of procedure. I was immediately available: during the entire case. Back up surgeon: was not required during procedure.
--- NOTE | 2019-12-18 12:04 | Operative Report ---
Post Operative Report Pre & Post Diagnosis Operation Date: 12/18/19 09:45 Pre-Op Diagnosis: Right hip fracture Post-Op Diagnosis: Right hip fracture I identified the patient and participated in the time-out.: Yes Procedure Operation Date: 12/18/19 09:45 Actual Procedures p Right Hip Cephalomedullary Nail(Right) - Lacho Bradley DO Surgeon Lacho Bradley DO Galley Boy None Estimated Blood Loss 10 Findings Consistent with Post-Op Diagnosis Fluids 1 L Specimens None Anesthesia Type Spinal MAC Complications none Disposition Disposition: Recovery Room Indications The patient is a 79yo female with displaced right intertrochanteric hip fracture sustained after a fall from standing height. The patient was medically stabilized on 12/18/2019. I indicated the patient for right hip cephalomedullary nail. The patient and family was informed of the risks and benefits of surgery, which include but not limited to infection, bleeding, blood clots, damage to nerves, vessels, bone and soft tissue, dislocation, leg length discrepancy, malunion, nonunion, failure of the implants, need for additional surgery and . The [ ] collectively chose to proceed with surgical interv ention and informed consent was obtained. Description of Procedure Following induction of adequate spinal anesthesia, the patient was placed on the fracture table. The left leg was placed in the well leg lynn and the right leg in the traction leg lynn. All bony prominences were protected. Utilizing c-arm fluoroscopy closed reduction of the fracture was performed. Once satisfied with fracture reduction the right hip was prepped and draped in the usual sterile manner. A time out was performed and site verified. The incision was made from the tip of the greater trochanter proximally. Subcutaneous tissue was sharply dissected to the tip of the greater trochanter, electrocautery used for hemostasis. Under fluoroscopic guidance the drill tipped guidewire was inserted at the tip of the greater trochanter and advanced into the medullary canal. Utilizing the intramedullary drill the guidewire was overdrilled with tissue protector attached. A 11 mm short Synthes TFN was inserted and impacted into position and confirmed by c-arm fluoroscopy. Next the aiming arm was attached to the insertion handle. A incision was made and carried down through subcutaneous tissues to bone. The blade guide sleeve was inserted and secured down to bone. The guide wire was passed across the fracture site to the tip of the femoral head, position was confirmed in the AP and lateral planes utilizing c-arm fluoroscopy. The guide pin was measured and the 11.0mm drill bit passed over the guide pin to open lateral cortex followed by a 6.0mm/10.0mm cannulated reamer to a depth of 100 mm. Next the helical blade was inserted and locked proximally. Traction was released and interfragmentary compression applied. Distally a stab incision was made in the skin and carried down to bone. The triple trocar assembly was inserted into the aiming guide to bone. Utilizing a 4.0mm drill, both cortices were drilled. The nail was locked distally using a single 4.9mm x 36 mm locking bolt. The aiming guide was removed at this time and final radiographs were obtained utilizing c-arm fluoroscopy to confirm overall position and fracture reduction. Incisions were irrigated with copious amounts of sterile saline solution. Subcutaneous tissue were injected utilizing .5% marcaine with epi. Deep closure was performed using #1 Vicryl followed by 2-0 Vicryl for subcutaneous tissues and vaishnavi in the skin. Sterile dressing, Xeroform gauze, 4x4s and tegaderm were applied. The patient tolerated the procedure well and was transported to the PACU in stable condition. I attest to the content of the Intraoperative Record and any orders documented therein. Any exceptions are noted below.
--- NOTE | 2019-12-18 12:23 | Fluoroscopy Report ---
FL hip RT 2-3V CLINICAL HISTORY: RT TROCHNAIL COMPARISON STUDY: None. FLUOROSCOPY TIME: 73 seconds. FINDINGS: 5 fluoroscopic spot images of the right hip were submitted. There is a proximal short femor al intramedullary lelia within interlocking femoral neck pin traversing the femoral fracture. The hardw are appears intact. Alignment is near-anatomic. IMPRESSION: Fluoroscopy provided for internal fixation of a right femoral neck fracture. ACT 112: Negative or not required by law. Electronically signed by: Alejandro Gilbert M.D. 12/18/2019 12:22 PM
--- NOTE | 2019-12-18 12:30 | Anesthesiology Progress Note ---
Date of Service December 18, 2019 Anesthesia Post Procedure Vital Signs Vital Signs: Temp Pulse Pulse Pulse Resp BP BP 12/18/19 12:20 70 16 90/52 L 12/18/19 12:10 71 17 114/61 12/18/19 12:03 36.8 C 73 20 148/76 H 12/18/19 09:35 37.3 C 78 21 121/61 12/18/19 07:15 36.8 C 81 18 112/74 12/18/19 07:00 82 12/18/19 04:00 37.2 C 82 18 128/78 12/18/19 00:55 88 12/17/19 23:24 37.5 C 85 16 126/79 12/17/19 15:02 36.8 C 74 75 18 126/72 12/17/19 14:19 74 18 120/70 Pulse Ox 12/18/19 12:20 98 12/18/19 12:10 96 12/18/19 12:03 95 12/18/19 09:35 96 12/18/19 07:15 95 12/18/19 07:00 12/18/19 04:00 93 12/18/19 00:55 12/17/19 23:24 96 12/17/19 15:02 98 12/17/19 14:19 99 Pain Intensity Right Hip: Pain Intensity: 0 Transfer of Care Handoff Completed per policy Notes Mental Status: alert / awake / arousable Patient Amnestic to Procedure: Yes Nausea / Vomiting: adequately controlled Pain: adequately controlled Airway Patency, RR, SpO2: stable & adequate BP & HR: stable & adequate Hydration State: stable & adequate Neuraxial Anesthesia: was administered and sensory block is resolving Anesthetic Complications: no major complications apparent and Pt Satisfied with anesthetic care
[2019-12-18] MEDS ORDERED: PROPOFOL IV EMULSION 10 MG/ML 20 ML VIAL IV ONE (12:44)
[2019-12-18] MEDS ORDERED: NALOXONE HCL 0.4 MG/1 ML VIAL/CARP IV PRN (13:18)
[2019-12-18] MEDS: SODIUM CHLORIDE 0.9% 1000ML 1,000 ML IV SCH (13:42)
--- NOTE | 2019-12-18 14:05 | Orthopedic Progress Note ---
Date of Service December 18, 2019 Assessment & Plan (1) Hip fracture, right: s/p R hip cephalomedullary nail -ancef x 24 -DVT ppx: SCDs, TEDs, Lovenox daily -PWB RLE -PT/OT -PO XR pending -am labs Admission and Anticipated Discharge Date Admission Date: December 17, 2019 Anticipated date of discharge: 12/20/19 Subjective Post Operative Progress Note Patient seen in PACU, comfortable, denies complaints, pain well controlled, no acute issues. Review of Systems Review of Systems: All systems reviewed & are unremarkable except as noted in HPI & below Constitutional: as per Subjective / HPI Physical Exam Physical Exam: RLE limited exam secondary to spinal anesthesia, +2 DP pulse, compartments soft NT, dressing CDI Constitutional: WD/WN, vitals as above Results & Data ([facility]) Vital Signs (Past 12 Hours) Vital Signs Temp Pulse Pulse Pulse Resp BP Pulse Ox 12/18/19 13:38 36.3 C L 74 18 130/72 93 12/18/19 13:15 71 12/18/19 13:10 36.3 C L 69 16 108/70 98 12/18/19 12:56 36.4 C L 65 18 104/66 98 12/18/19 12:40 36.7 C 62 16 93/52 L 97 12/18/19 12:30 64 18 96/54 L 99 12/18/19 12:20 70 16 90/52 L 98 12/18/19 12:10 71 17 114/61 96 12/18/19 12:03 36.8 C 73 20 148/76 H 95 12/18/19 09:35 37.3 C 78 21 121/61 96 12/18/19 07:15 36.8 C 81 18 112/74 95 12/18/19 07:00 82 12/18/19 04:00 37.2 C 82 18 128/78 93 (1) Hip fracture, right Encounter type: initial encounter Fracture type: closed Qualified Code(s): S72.001A - Fracture of unspecified part of neck of right femur, initial encounter for closed fracture
--- NOTE | 2019-12-18 14:27 | XRay Report ---
XR hip RT min 2V CLINICAL HISTORY: Post op. Right hip fracture. COMPARISON STUDY: Right femur 12/17/2019. FINDINGS: Status post internal fixation of the intertrochanteric fracture of the right hip there is a proximal short intramedullary femoral lelia within interlocking femoral neck pin. The hardware appears intact. The alignment is near-anatomic. The visualized pelvic bones are intact. Skin vaishnavi are not ed. IMPRESSION: Status post internal fixation of a right hip fracture. The hardware appears intact. ACT 112: Negative or not required by law. Electronically signed by: Alejandro Gilbert M.D. 12/18/2019 2:26 PM
[2019-12-18] MEDS ORDERED: ENOXAPARIN INJ 40 MG/0.4 ML SYR SQ SCH (15:00)
--- NOTE | 2019-12-18 16:11 | Electrocardiogram Report ---
Test Reason : Blood Pressure : / mmHG Vent. Rate : 069 BPM Atrial Rate : 069 BPM P-R Int : 214 ms QRS Dur : 088 ms QT Int : 404 ms P-R-T Axes : 025 018 021 degrees QTc Int : 432 ms Poor data quality, interpretation may be adversely affected Sinus rhythm with 1st degree A-V block Otherwise normal ECG When compared with ECG of 21-MAR-2006 07:52, LA interval has increased Confirmed by Lobo Rosario ([id number]) on 12/18/2019 4:11:09 PM Referred By: REFERRED SELF Confirmed By:Lobo Rosario
[2019-12-18] MEDS: CEFAZOLIN 1000MG 1,000 MG/7.5 ML SYR IV SCH (18:38)
[2019-12-18] MEDS: POTASSIUM CHLORIDE 20 MEQ/15 ML UDC PO SCH (21:05)
[2019-12-18] MEDS: MIRTAZAPINE TAB 15 MG TAB PO SCH (21:06)
[2019-12-19] MEDS: CEFAZOLIN 1000MG 1,000 MG/7.5 ML SYR IV SCH (01:43)
[2019-12-19] MEDS: SODIUM CHLORIDE 0.9% 1000ML 1,000 ML IV SCH (02:42)
[2019-12-19 06:37] LABS: Hematocrit (blood only) 34.3 % (37-47); Hemoglobin 11.4 g/dL (12.0-16.0); Immature Granulocytes # (auto) 0.02 K/uL (0.00-0.02); Immature Granulocytes % (auto) 0.1 %; Lymphocytes # (auto) 1.41 K/uL (1.2-3.4); Lymphocytes % (auto) 9.9 %; Mean Corpuscular Hemoglobin 30.2 pg (25-34); Mean Corpuscular Hgb Conc 33.2 g/dL (32-36); Mean Corpuscular Volume 90.7 fL (80-100); Mean Platelet Volume 10.1 fL (7.4-10.4); Monocytes # (auto) 1.31 K/uL (0.11-0.59); Monocytes % (auto) 9.2 %; Neutrophils # (auto) 11.48 K/uL (1.4-6.5); Neutrophils % (auto) 80.8 %; Platelet Count 211 K/uL (130-400); RDW Coefficient of Variation 13.9 % (11.5-14.5); RDW Standard Deviation 46.1 fL (36.4-46.3); Red Blood Count 3.78 M/uL (4.2-5.4); White Blood Count 14.22 K/uL (4.8-10.8)
[2019-12-19 07:21] LABS: BUN Creatinine Ratio 17.7 (10-20); Creatinine Clr Calc Pharmacy 42.9 ml/min; Est GFR (African American) 66.8; Est GFR (Non-African American) 57.6; Potassium 3.6 mmol/L (3.5-5.1)
[2019-12-19] MEDS: ENOXAPARIN INJ 40 MG/0.4 ML SYR SQ SCH (07:59)
[2019-12-19] MEDS: QUETIAPINE FUMARATE 25 MG TABLET PO SCH ×2 (07:59→21:25)
[2019-12-19] MEDS: POTASSIUM CHLORIDE 20 MEQ/15 ML UDC PO SCH ×2 (07:59→21:24)
[2019-12-19] MEDS: MEMANTINE HCL 10 MG TAB PO SCH ×2 (07:59→21:24)
[2019-12-19] MEDS: METOPROLOL SUCC 50MG EXT REL TAB PO SCH (07:59)
[2019-12-19] MEDS: ACETAMINOPHEN 325 MG TAB PO PRN (08:02)
--- NOTE | 2019-12-19 09:22 | Orthopedic Progress Note ---
Date of Service December 19, 2019 Assessment & Plan (1) Hip fracture, right: POD 1 s/p R hip cephalomedullary nail -ancef x 24,then dc -DVT ppx: SCDs, TEDs, Lovenox daily -PWB RLE -PT/OT -am labs as above Admission and Anticipated Discharge Date Admission Date: December 17, 2019 Anticipated date of discharge: 12/20/19 Supervising Physician Co-Signing Physician Notes The patient was seen and examined sitting at bedside, comfortable, no acute issues or complaints. Agree with above assessment plan Right lower extremity physical exam neurovascular sensory intact grossly, dressing clean dry and intact, compartment soft nontender. AP status post right hip cephalo-medullary nail Partial weightbearing right lower extremity DVT prophylaxis Lovenox daily, SCDs and teds PT/OT A.m. labs hemoglobin 11.4 Subjective POD 1 Pt sitting up in chair. No complaints this AM. States pain is controlled currently and she feels well. Denies SOB,CP,LH. Review of Systems Review of Systems: All systems reviewed & are unremarkable except as noted in HPI & below Constitutional: as per Subjective / HPI Physical Exam Physical Exam: Dressings are C/D/I. Thigh with mild swelling but soft. Calves soft,NT. NV intact. Results & Data ([facility]) Vital Signs (Past 12 Hours) Vital Signs Temp Pulse Pulse Resp BP Pulse Ox 12/19/19 08:30 84 12/19/19 07:01 37.2 C 76 18 117/64 94 12/19/19 03:24 37.6 C H 83 18 120/74 93 12/19/19 00:19 37.3 C 80 17 136/54 L 95 12/19/19 00:15 84 Laboratory Results Laboratory Results WBC 14.22 K/uL (4.8-10.8) H 12/19/19 06:23 RBC 3.78 M/uL (4.2-5.4) L 12/19/19 06:23 Hgb 11.4 g/dL (12.0-16.0) L 12/19/19 06:23 Hct 34.3 % (37-47) L 12/19/19 06:23 MCV 90.7 fL (80-100) 12/19/19 06:23 MCH 30.2 pg (25-34) 12/19/19 06:23 MCHC 33.2 g/dL (32-36) 12/19/19 06:23 RDW Std Deviation 46.1 fL (36.4-46.3) 12/19/19 06:23 RDW Coeff of Cyndi 13.9 % (11.5-14.5) 12/19/19 06:23 Plt Count 211 K/uL (130-400) 12/19/19 06:23 MPV 10.1 fL (7.4-10.4) 12/19/19 06:23 Immature Gran % (Auto) 0.1 % 12/19/19 06:23 Neut % (Auto) 80.8 % 12/19/19 06:23 Lymph % (Auto) 9.9 % 12/19/19 06:23 [place] % (Auto) 9.2 % 12/19/19 06:23 Eos % (Auto) 0.0 % 12/19/19 06:23 Baso % (Auto) 0.0 % 12/19/19 06:23 Immature Gran # (Auto) 0.02 K/uL (0.00-0.02) 12/19/19 06:23 Neut # (Auto) 11.48 K/uL (1.4-6.5) H 12/19/19 06:23 Lymph # (Auto) 1.41 K/uL (1.2-3.4) 12/19/19 06:23 [place] # (Auto) 1.31 K/uL (0.11-0.59) H 12/19/19 06:23 Eos # (Auto) 0.00 K/uL (0-0.5) 12/19/19 06:23 Baso # (Auto) 0.00 K/uL (0-0.2) 12/19/19 06:23 PT 11.8 Seconds (9.0-12.0) 12/17/19 13:59 INR 1.1 (0.9-1.1) 12/17/19 13:59 Sodium 139 mmol/L (136-145) 12/19/19 06:23 Potassium 3.6 mmol/L (3.5-5.1) D 12/19/19 06:23 Chloride 108 mmol/L (98-107) H 12/19/19 06:23 Carbon Dioxide 23 mmol/L (21-32) 12/19/19 06:23 Anion Gap 8.0 (3-11) 12/19/19 06:23 BUN 16 mg/dl (7-18) 12/19/19 06:23 Creatinine 0.93 mg/dl (0.6-1.2) 12/19/19 06:23 Est Cr Clr Drug Dosing 42.9 ml/min 12/19/19 06:23 Est GFR ( Amer) 66.8 12/19/19 06:23 Est GFR (Non-Af Amer) 57.6 12/19/19 06:23 BUN/Creatinine Ratio 17.7 (10-20) 12/19/19 06:23 Glucose 96 mg/dl (70-99) 12/19/19 06:23 Calcium 9.0 mg/dl (8.5-10.1) 12/19/19 06:23 Magnesium 2.1 mg/dl (1.8-2.4) 12/18/19 15:11 Total Bilirubin 0.5 mg/dl (0.2-1) 12/17/19 13:52 AST 17 U/L (15-37) 12/17/19 13:52 ALT 23 U/L (12-78) 12/17/19 13:52 Alkaline Phosphatase 79 U/L (45-117) 12/17/19 13:52 Total Protein 8.0 gm/dl (6.4-8.2) 12/17/19 13:52 Albumin 3.8 gm/dl (3.4-5.0) 12/17/19 13:52 Globulin 4.2 gm/dl (2.5-4.0) H 12/17/19 13:52 Albumin/Globulin Ratio 0.9 (0.9-2) 12/17/19 13:52 Urine Color Yellow 12/17/19 14:00 Urine Appearance Clear (Clear) 12/17/19 14:00 Urine pH 5.5 (4.5-7.5) 12/17/19 14:00 Ur Specific [place] 1.022 (1.000-1.030) 12/17/19 14:00 Urine Protein Negative (Negative) 12/17/19 14:00 Urine Glucose (UA) Negative (Negative) 12/17/19 14:00 Urine Ketones 1+ (Negative) H 12/17/19 14:00 Urine Blood Negative (Negative) 12/17/19 14:00 Urine Nitrite Negative (Negative) 12/17/19 14:00 Urine Bilirubin Negative (Negative) 12/17/19 14:00 Urine Urobilinogen Negative (Negative) 12/17/19 14:00 Ur Leukocyte Esterase Negative (Negative) 12/17/19 14:00 (1) Hip fracture, right Encounter type: initial encounter Fracture type: closed Qualified Code(s): S72.001A - Fracture of unspecified part of neck of right femur, initial encounter for closed fracture
--- NOTE | 2019-12-19 11:07 | Hospitalist Progress Note ---
Date of Service December 19, 2019 Assessment & Plan (1) Hip fracture, right: Patient sustained fall 12/16 after losing balance/tripping on steps X-ray shows right intertrochanteric fracture Incident appears to be accidental/mechanical fall, no symptoms of shortness of breath, strokelike symptoms, chest pain prior or after falls Orthopedics to see Morphine 0.5 mg every 4 hours as needed for pain, pain medication can be titrated pre-and postop Patient has advanced directive/living will stating DNR/DNI s/p IM Nail, DC in 1-2 days Hypertension: Blood pressure well controlled, Continue Toprol-XL 50 mg daily We will hold diuretics: Aldactone -hydrochlorothiazide to prevent dehydration, acute renal failure postoperatively All usual antihypertensives can be resumed once patient clinically recovered surgery (2) Dementia: Oriented to place and person baseline dementia Per family members patient has been independent in ADLs Caution for : Hospital-acquired delirium, due to acute hospitalization /surgical procedure/anesthesia Ordered for fall precaution, bed alarm Frequent orientation, Patient's home meds Namenda Seroquel Remeron will be continued Avoid benzodiazepine for agitation can cause rebound effect. CODE STATUS: DNR/DNI DVT prophylaxis: SCD and teds preop Post hip fracture patient will need pharmacological anticoagulation-per orthopedics protocol due to high risk of DVT post hip surgery Disposition: PT OT evaluation post hip surgery per orthopedics Lives at home with family, SNF or Rehab Labs checked ROS-No Headache, No Visual Changes, No Nausea, No Vomiting, No Fever, No Chills, No Neck Pain or Stiffness, No Chest Pain, No Palpitations, No SOB, No STEPHENSON, No Cough, No Sputum, No Wheezing, No Abdominal Pain, No Diarrhea, No Hematemesis, No Hemoptysis, No Unexpected Weight Loss, No Flank pain, No Melena, No Hematochezia, No Frequency, No Urgency, No Burning, No Hematuria, No Rashes, No Diaphoresis. Appetite is Normal Physical Exam Gen-AAO x 3, NAD, Afebrile Head-NCAT, EOMI, PERRLA, Anicteric Sclera, No Posterior Pharyngeal Erythema Neck-Supple, No JVD, No Thyromegaly, No Masses, No LAD, No Bruits Lungs-Clear to Auscultation Bilaterally, No Rales, No Rhonchi, No Wheezing, No Crepitus Chest-No S4, +S1, +S2, No S3, No Murmurs, No Rubs, No Gallops, No Ectopy Abdomen-Soft, Bowel Sounds Present, Non Tender, Non Distended, No Hepatomegaly, No Splenomegaly, No Palpable Masses, No Rebound, No Rigidity, No Guarding Musculoskeletal-Full Range of Motion Bilaterally, No CVAT Extremities-No Cyanosis, No Clubbing, No Edema Nuero-Cranial Nerves II-XII grossly intact, Motor WNL, DTRs WNL, Strength WNL, Non Focal Psych-Normal Mood Admission and Anticipated Discharge Date Admission Date: December 17, 2019 Anticipated date of discharge: 12/20/19 Results & Data Results & Data ([facility]) Vital Signs (Past 12 Hours) Vital Signs Temp Pulse Pulse Resp BP Pulse Ox 12/19/19 08:30 84 12/19/19 07:01 37.2 C 76 18 117/64 94 12/19/19 03:24 37.6 C H 83 18 120/74 93 12/19/19 00:19 37.3 C 80 17 136/54 L 95 12/19/19 00:15 84 (1) Hip fracture, right Encounter type: initial encounter Fracture type: closed Qualified Code(s): S72.001A - Fracture of unspecified part of neck of right femur, initial encounter for closed fracture (2) Dementia Dementia behavioral disturbance: without behavioral disturbance Dementia type: unspecified type Qualified Code(s): F03.90 - Unspecified dementia without behavioral disturbance
[2019-12-19] MEDS: MIRTAZAPINE TAB 15 MG TAB PO SCH (21:24)
[2019-12-20 06:27] LABS: Hematocrit (blood only) 35.2 % (37-47); Hemoglobin 11.8 g/dL (12.0-16.0); Mean Corpuscular Hemoglobin 30.3 pg (25-34); Mean Corpuscular Hgb Conc 33.5 g/dL (32-36); Mean Corpuscular Volume 90.3 fL (80-100); Platelet Count 217 K/uL (130-400); RDW Coefficient of Variation 13.9 % (11.5-14.5); RDW Standard Deviation 46.1 fL (36.4-46.3); White Blood Count 13.03 K/uL (4.8-10.8)
[2019-12-20 06:44] LABS: BUN Creatinine Ratio 14.3 (10-20); Calcium 9.8 mg/dl (8.5-10.1); Creatinine Clr Calc Pharmacy 41.6 ml/min; Est GFR (African American) 64.3; Est GFR (Non-African American) 55.5
--- NOTE | 2019-12-20 08:16 | Orthopedic Progress Note ---
Date of Service December 20, 2019 Assessment & Plan (1) Hip fracture, right: POD 2 s/p R hip cephalomedullary nail -ancef x 24,then dc -DVT ppx: SCDs, TEDs, Lovenox daily -PWB RLE -PT/OT -am labs as above -Orthopedics will sign off at this time, DC instructions in chart, call with questions. Admission and Anticipated Discharge Date Admission Date: December 17, 2019 Anticipated date of discharge: 12/20/19 Subjective Post Operative Progress Note Patient seen sitting up in bed, comfortable, denies complaints, pain well controlled, no acute issues. Denies F/C/N/V/SOB/CP. Review of Systems Review of Systems: All systems reviewed & are unremarkable except as noted in HPI & below Constitutional: as per Subjective / HPI Physical Exam Physical Exam: RLE NVSI +EHL/FHL/TA/GS SILT grossly, +2 DP pulse, compartments soft NT, dressing cdi. Constitutional: WD/WN, vitals as above Results & Data ([facility]) Vital Signs (Past 12 Hours) Vital Signs Temp Pulse Resp BP Pulse Ox 12/19/19 23:28 36.8 C 85 16 130/71 96 12/19/19 20:18 36.7 C 81 18 153/70 H 96 Laboratory Results 12/20/19 12/20/19 Range/Units 06:16 06:16 WBC 13.03 H (4.8-10.8) K/uL RBC 3.90 L (4.2-5.4) M/uL Hgb 11.8 L (12.0-16.0) g/dL Hct 35.2 L (37-47) % MCV 90.3 (80-100) fL MCH 30.3 (25-34) pg MCHC 33.5 (32-36) g/dL RDW Std Deviation 46.1 (36.4-46.3) fL RDW Coeff of Cyndi 13.9 (11.5-14.5) % Plt Count 217 (130-400) K/uL MPV 10.0 (7.4-10.4) fL Sodium 137 (136-145) mmol/L Potassium 4.0 (3.5-5.1) mmol/L Chloride 106 (98-107) mmol/L Carbon Dioxide 23 (21-32) mmol/L Anion Gap 8.0 (3-11) BUN 14 (7-18) mg/dl Creatinine 0.96 (0.6-1.2) mg/dl Est Cr Clr Drug Dosing 41.6 ml/min Est GFR ( Amer) 64.3 Est GFR (Non-Af Amer) 55.5 BUN/Creatinine Ratio 14.3 (10-20) Glucose 96 (70-99) mg/dl Calcium 9.8 (8.5-10.1) mg/dl (1) Hip fracture, right Encounter type: initial encounter Fracture type: closed Qualified Code(s): S72.001A - Fracture of unspecified part of neck of right femur, initial encounter for closed fracture
[2019-12-20] MEDS: POTASSIUM CHLORIDE 20 MEQ/15 ML UDC PO SCH (08:22)
[2019-12-20] MEDS: ENOXAPARIN INJ 40 MG/0.4 ML SYR SQ SCH (08:22)
[2019-12-20] MEDS: MEMANTINE HCL 10 MG TAB PO SCH (08:22)
[2019-12-20] MEDS: METOPROLOL SUCC 50MG EXT REL TAB PO SCH (08:23)
[2019-12-20] MEDS: QUETIAPINE FUMARATE 25 MG TABLET PO SCH (08:23)
[2019-12-20] MEDS: ACETAMINOPHEN 325 MG TAB PO PRN (14:26)
--- NOTE | 2019-12-20 15:31 | Hospitalist Progress Note ---
Date of Service December 20, 2019 Assessment & Plan (1) Hip fracture, right: S/P fall after losing her balance Right Hip xray showed right intertrochanteric fracture CT head showed no acute intracranial abnormality CT cervical showed no fractures within the cervical spine. S/P day # 2 R hip cephalomedullary nail No post-op complication Ortho on board recommended to continue PARTIAL WEIGHT BEARING on your right lower extremity for at least 6 weeks. Continue PT/OT Fall precaution Pain control Hypertension: Blood pressure well controlled, Continue Toprol-XL 50 mg daily Will resume Aldactone and hydrochlorothiazide on discharge Continue monitor BP (2) Dementia: Oriented to place and person baseline dementia Per family members patient has been independent in ADLs Caution for : Hospital-acquired delirium, due to acute hospitalization /surgical procedure/anesthesia Ordered for fall precaution, bed alarm Frequent orientation, Patient's home meds Namenda Seroquel Remeron will be continued Avoid benzodiazepine for agitation can cause rebound effect. CODE STATUS: DNR/DNI DVT prophylaxis Continue Lovenox x 4 weeks Disposition: Discharge SNF/Rehab today Admission and Anticipated Discharge Date Admission Date: December 17, 2019 Anticipated date of discharge: 12/20/19 Subjective Pt was seen and examined Lying in bed with no distress Pt said that her pain is control Denies any chest pain, palpitation, dizziness and SOB Physical Exam Physical Exam: General- No acute distress Head- atraumatic Eyes- PERRL, EOMI, ENT- oropharynx clear Neck- supple, no JVD Lungs- clear to auscultation Heart- regular rhythm; no murmur Abdomen- normal bowel sounds, soft, nontender Extremities- no calf tenderness Neuro- alert, awake,PERRL, EOMI; no facial palsy; no dysarthria Skin- warm & dry Results & Data Results & Data ([facility]) Vital Signs (Past 12 Hours) Vital Signs Temp Pulse Resp BP Pulse Ox 12/20/19 15:23 36.6 C 103 H 16 104/68 95 12/20/19 10:16 36.7 C 81 16 123/76 96 (1) Dementia Dementia behavioral disturbance: without behavioral disturbance Dementia type: unspecified type Qualified Code(s): F03.90 - Unspecified dementia without behavioral disturbance (2) Hip fracture, right Encounter type: initial encounter Fracture type: closed Qualified Code(s): S72.001A - Fracture of unspecified part of neck of right femur, initial encounter for closed fracture
[2019-12-20] MEDS ORDERED: MIRTAZAPINE SOLTAB 15 MG PO SCH (21:00)
--- NOTE | 2019-12-21 08:07 | Discharge Summary ---
Date of Service December 20, 2019 Admission HPI Per Admitting Provider This is a 79-year-old female with past medical history of dementia, hypertension, who sustained a fall this morning after going down the steps. Patient lives with her son and daughter Information obtained from patient's daughter Massiel Mir present at bedside . Patient was climbing down the stairs to the first floor carrying a plate At the end of the stairs she apparently tripped and fell. Daughter found her on the bottom of the stairs after hearing the sound, Patient was awake and alert, complained of right hip pain, There was no complaint of shortness of breath, chest pain, dizzy spell or lightheadedness prior or after the fall Patient did not had any recent illness, no fever chills or cough. At baseline patient is oriented to place, person, recognizes family members, independent in her ADLs Does not have any significant ambulatory dysfunction, does not require cane or walker Family recalls patient sustained a fall months before for the similar reason of tripping over steps while trying to carry objects. In the ER patient was comfortable, awake and alert able to answer questions, vitals stable X-ray of hip shows right intertrochanteric fracture. Admission Exam Per Admitting Provider Constitutional: WD/WN, vitals as above + thin; no acute distress Eyes: + anicteric sclerae ENMT: external ear and nose normal, oropharynx normal Neck: trachea midline, no thyromegaly Respiratory: normal respiratory effort, lungs clear to auscultation Cardiovascular: RRR, no murmur, no edema Gastrointestinal: Inspection/Auscultation: normal bowel sounds Percussion/Palpation: abdomen soft; abdomen nontender Musculoskeletal: Head/Neck/Chest: normocephalic, head atraumatic and neck supple tenderness on right hip area Neurologic: PERRL, EOMI, accommodation nl, no face palsy, no dysarthria Psychiatric: Orientation: alert; + not oriented x 3 (baseline dementia , oriented to place and person only ) Affect: + flat affect Principal Diagnosis Hip fracture, right: Hypertension: Dementia: Discharge Exam General- No acute distress Head- atraumatic Eyes- PERRL, EOMI, ENT- oropharynx clear Neck- supple, no JVD Lungs- clear to auscultation Heart- regular rhythm; no murmur Abdomen- normal bowel sounds, soft, nontender Extremities- no calf tenderness Neuro- alert, awake,PERRL, EOMI; no facial palsy; no dysarthria Skin- warm & dry Discharge Data Allergies Allergy/AdvReac Type Severity Reaction Status Date / Time No Known Allergies Allergy Unknown Verified 12/17/19 13:21 Consultations 12/17/19 13:52 ED Decision to Admit Stat 12/17/19 14:45 Consult Case Management - Discharge Planning Routine 12/17/19 15:27 Consult Orthopedic Surgery Routine Procedures Performed Operation Date: 12/18/19 09:45 Actual Procedures p Right Hip Cephalomedullary Nail(Right) - Lacho Bradley DO Ordered Studies 12/17/19 12:27 CT cervical spine wo con Stat CT head/brain wo con Stat 12/18/19 12:00 FL fluoroscopy <1hr Routine FL hip RT 2-3V Routine CT cervical spine wo con CT DOSE: 850.67 mGy.cm HISTORY: Trauma. Pain. fall TECHNIQUE: Multiaxial CT images of the cervical spine were performed and reformatted in the sagittal and coronal plane without the use of contrast. A dose lowering technique was utilized adhering to the principles of ALARA. COMPARISON: None. FINDINGS: No fractures. No subluxation. Prevertebral soft tissues and the C1-C2 interval are intact. No pneumothorax. IMPRESSION: No fractures within the cervical spine. Moderate generalized degenerative change. ACT 112: Negative or not required by law. The above report was generated using voice recognition software. It may contain grammatical, syntax or spelling errors. Electronically signed by: Conner Tong M.D. 12/17/2019 1:45 PM Dictated: 12/17/19 1344 Transcribed: 12/17/19 1344 XR chest 1V portable CLINICAL HISTORY: fall COMPARISON STUDY: No previous studies for comparison. FINDINGS: The bones soft tissues and hemidiaphragms are normal. The cardiomediastinal silhouette is normal. The lungs are clear. The pulmonary vasculature is normal. IMPRESSION: Negative chest. ACT 112: Negative or not required by law. The above report was generated using voice recognition software. It may contain grammatical, syntax or spelling errors. Electronically signed by: Conner Tong M.D. 12/17/2019 1:17 PM Dictated: 12/17/19 1316 Transcribed: 12/17/[address] head/brain wo con CT DOSE: HISTORY: Trauma fall TECHNIQUE: Multiaxial CT images of the head were performed without the use of intravenous contrast. A dose lowering technique was utilized adhering to the principles of ALARA. Comparison: None. Findings: The paranasal sinuses and mastoid air cells are clear. The calvarium and skull base are intact. The ventricles and sulci are within normal limits. There is no mass, hematoma, midline shift, or acute infarct. Impression: No acute intracranial abnormality. Age-related atrophy and chronic small vessel change. ACT 112: Negative or not required by law. The above report was generated using voice recognition software. It may contain grammatical, syntax or spelling errors. Electronically signed by: Conner Tong M.D. 12/17/2019 1:44 PM Dictated: 12/17/19 1343 Transcribed: 12/17/19 1343 XR hip RT 2V w pelvis CLINICAL HISTORY: r hip pain COMPARISON: None. DISCUSSION: Slightly comminuted intertrochanteric fracture right hip. No evidence for acetabular protrusion. There is no evidence for soft tissue swelling. IMPRESSION: Intertrochanteric fracture right hip. ACT 112: Negative or not required by law. The above report was generated using voice recognition software. It may contain grammatical, syntax or spelling errors. Electronically signed by: Conner Tong M.D. 12/17/2019 1:18 PM Dictated: 12/17/19 1317 Transcribed: 12/17/19 1317 XR femur RT 2V routine CLINICAL HISTORY: right hip fracture, trauma COMPARISON: Same date DISCUSSION: Improved bony alignment. Intertrochanteric fracture right hip again noted. No evidence dislocation. The remainder the femur is unremarkable. IMPRESSION: Improved alignment. Intertrochanteric fracture right hip again noted. ACT 112: Negative or not required by law. The above report was generated using voice recognition software. It may contain grammatical, syntax or spelling errors. Electronically signed by: Conner Tong M.D. 12/17/2019 7:32 PM Dictated: 12/17/191930 Transcribed: 12/17/191930 FL hip RT 2-3V CLINICAL HISTORY: RT TROCHNAIL COMPARISON STUDY: None. FLUOROSCOPY TIME: 73 seconds. FINDINGS: 5 fluoroscopic spot images of the right hip were submitted. There is a proximal short femoral intramedullary lelia within interlocking femoral neck pin traversing the femoral fracture. The hardware appears intact. Alignment is near- anatomic. IMPRESSION: Fluoroscopy provided for internal fixation of a right femoral neck fracture. ACT 112: Negative or not required by law. Electronically signed by: Alejandro Gilbert M.D. 12/18/2019 12:22 PM Dictated: 12/18/19 1207 Transcribed: 12/18/19 1207 XR hip RT min 2V CLINICAL HISTORY: Post op. Right hip fracture. COMPARISON STUDY: Right femur 12/17/2019. FINDINGS: Status post internal fixation of the intertrochanteric fracture of the right hip there is a proximal short intramedullary femoral lelia within interlocking femoral neck pin. The hardware appears intact. The alignment is near-anatomic. The visualized pelvic bones are intact. Skin vaishnavi are noted. IMPRESSION: Status post internal fixation of a right hip fracture. The hardware appears intact. ACT 112: Negative or not required by law. Electronically signed by: Alejandro Gilbert M.D. 12/18/2019 2:26 PM Dictated: 12/18/19 1425 Transcribed: 12/18/19 1425 Hospital Course (1) Hip fracture, right: S/P fall after losing her balance Right Hip xray showed right intertrochanteric fracture CT head showed no acute intracranial abnormality CT cervical showed no fractures within the cervical spine. S/P day # 2 R hip cephalomedullary nail No post-op complication Ortho on board recommended to continue PARTIAL WEIGHT BEARING on your right lower extremity for at least 6 weeks. Continue PT/OT Fall precaution Pain control Hypertension: Blood pressure well controlled, Continue Toprol-XL 50 mg daily Will resume Aldactone and hydrochlorothiazide on discharge Continue monitor BP (2) Dementia: Oriented to place and person baseline dementia Per family members patient has been independent in ADLs Caution for : Hospital-acquired delirium, due to acute hospitalization /surgical procedure/anesthesia Ordered for fall precaution, bed alarm Frequent orientation, Patient's home meds Namenda Seroquel Remeron will be continued Avoid benzodiazepine for agitation can cause rebound effect. CODE STATUS: DNR/DNI DVT prophylaxis Continue Lovenox x 4 weeks Disposition: Discharge SNF/Rehab today Total Time Total Time Spent Total Time Spent (In Minutes): 35 minutes Total Time Includes: Examination of the Patient, Discharge Planning, Medication Reconciliation, Communication With Other Providers and Other Discharge Plan Discharge Items Patient Disposition: Transfer Inpatient Rehab Fac Reason For Visit: FALL Discharge Diagnosis: Hip fracture, right: Hypertension: Dementia: Activity: As commented below Non-emergency contact: Primary Care Provider Call non-emergency contact if: you have any medication questions and your pain is not controlled Follow-up/Referrals: Isidoro Shabazz, [Primary Care Provider] - Wendy Carver CRNP [Nurse Practitioner] - (Follow up in 6 weeks / Osteoporosis) Diet: Heart Healthy Addtl Attending Provider Instructions: Follow up with your primary care provider once discharge from rehab Follow up with orthopedic in 10 to 14 days ( Please call to schedule for the follow up appointment at [phone]) Continue partial weight bearing on the right lower extremity Continue physical and occupational therapy Fall precaution Continue monitor your blood pressure Check BMP in 1 week to monitor electrolytes Addtl Manager Mobility Provider Instructions: [facility] DISCHARGE INSTRUCTIONS: HIP FRACTURE SELF CARE INSTRUCTIONS: A. You are to ambulate with a walker or crutches for approximately 6 weeks. B. You are PARTIAL WEIGHT BEARING on your operative lower extremity for at least 6 weeks. C. Wear low heeled shoes with non-slip soles D. Be sure that your floors are free of things that could trip you throw rugs, electrical cords, and small objects. Avoid wet and waxed floors, especially with crutches/walker/cane. E. Try to walk several times a day with rest periods between. F. You may shower 48 hours after surgery and get the incision area wet, but DO NOT soak or submerge incision area in water. (No baths, swimming pools, hot tubs) G. You may have a large, band-aid like dressing over your incision (Aquacel). This will remain on your incision for 7 days, and then can be removed. You CAN shower with this on. If incision is leaking through the dressing, please call the office . H. Do NOT apply soap or any ointment/lotions directly over incision. I. You may use ice as needed to operative site. SPECIAL CARE INSTRUCTIONS: VERY IMPORTANT TO READ AND REVIEW A. You may be at risk for phlebitis or blood clots. a. Wear surgical stockings (MIYA hose) for 2 weeks after surgery to improve circulation and reduce swelling. b. Take LOVENOX 40mg SQ daily for 4 weeks or as directed. This is your blood thinner. c. If you are on Coumadin- you will have daily/weekly bl ood work to monitor your levels. This will be done by either your family physician/tailor women's garment alteration (if you are on Coumadin chronically) versus your orthopedic surgeon. Expect a phone call the day of or the day after your blood work is drawn to adjust your dose accordingly. B. There are a few signs you need to watch for after you are home. Call [facility] at [phone] if you experience any of the following: a. If you have a temperature of 101 degrees or higher. b. Sudden increase in pain in your hip not relieved by rest or pain medication. c. Any fluid or drainage from the incision; redness of the incision. d. Shortness of breath or chest pain. B. Please call [facility] at [phone] if you have any questions or concerns about your operation or recovery. C. Call your physician if: a. Temperature is greater than 101 degrees (F). b. Pain is not relieved by prescribed pain medications. c. Increase drainage or redness from incision. d. Unanswered questions or concerns. D. Pain Medication: a. You will be prescribed pain medication upon discharge that should last till your first post-operative appointment. b. If you experience nausea and/or skin rash, discontinue this medication and contact our office for an alternative medication. c. Caution- narcotic pain medication can cause constipation. FOLLOW UP VISIT: Please call [facility] at [phone] to schedule a follow up appointment 10-14 days from the date of your surgery date. Pending Studies at Discharge: No Stand-Alone Forms: My [facility] Skilled Items Patient informed of condition?: Yes DNR: Yes Discharge Level of Care: Acute rehab Communicable Disease: No Discharge Prognosis: Stable Lines: None Urinary Catheter: No Medications and DC Order Prescriptions: New enoxaparin 40 mg/0.4 mL Syringe 40 mg subcut Q24H 30 Days Qty: 12 RF: 0 acetaminophen [Mapap (acetaminophen)] 325 mg Tablet 650 mg PO Q6H PRN (Reason: fever or pain) Qty: 30 RF: 0 Continued metoprolol succinate [Toprol XL] 50 mg Tablet Extended Release 24 Hr 50 mg PO DAILY Qty: 0 RF: 0 spironolacton-hydrochlorothiaz [Aldactazide] 25-25 mg Tablet 1 tab PO DAILY Qty: 0 RF: 0 quetiapine [Seroquel] 25 mg tablet 25 mg PO BID RF: 0 mirtazapine [Remeron] 30 mg tablet 30 mg PO HS RF: 0 memantine [Namenda] 10 mg tablet 10 mg PO BID RF: 0 Discharge Orders: Discharge Order (Routine); Ordered 12/20/19 Ordered By: Harpal Madsen Admission Data Admit Date/Time: 12/17/19 13:59 Attending Provider: Harpal Madsen Admit Provider: Marquita Pollock Primary Care Provider: Isidoro Shabazz Other Providers: [facility] ; Marquita Pollock ; Curt Moss ; Davy Estrada Other Interventions: Discharge Summary Assessment (RN) Last Done: 12/20/19 15:50 DC Date/Time DO NOT enter until pt leaves facility: 12/20/19 16:24
== END 2019-12-20 16:24 | DRG 482 ==
LOC: ED 12:18 → 2N 13:59 → SUATTDRO 13:59 → 2N 14:19 → 3E 12-19 19:22

== ENCOUNTER 2022-03-05 11:44 | Inpatient (IN) ==
[2022-03-05] MEDS ORDERED: SODIUM CHLORIDE 0.9% 500 ML IV SCH (12:15)
--- NOTE | 2022-03-05 12:37 | Emergency Department Note ---
Impression & Plan Weakness, Hypercalcemia, Urinary tract infection, Acute dehydration, ROSA (acute kidney injury) ED Provider Note NAME: LAZARA VALLEJO AGE: 81 SEX: F : 1940 ARRIVES VIA: Walk-In INFORMANT: Patient, the patient's family members ED PROVIDER(S): Quentin Keita DO CHIEF COMPLAINT: Generalized weakness HPI: The patient is an 81-year-old female who presented to the emergency department for an evaluation of generalized weakness. The patient presented with her family members. She does have a history of dementia. She was recently diagnosed with COVID-19. Her family member states that ever since that time she has had difficulty getting out of bed. She does not appear to have as much strength as she used to. She also has been complaining of right hip pain. There was no reported fall but the family member did notice some skin changes over her posterior right hip. She has had no nausea or vomiting. She has been compliant with her outpatient medications. She was noted to have decreased p.o. intake but seems to be drinking okay. She denies having any headache. She has had no trauma. She denies having any chest pain or difficulty breathing. She was not seen by her family doctor for the symptoms but rather the family presented to the emergency department with her. ROS: See above HPI for pertinent positives & negatives. A total of 10 systems reviewed and were otherwise negative. PAST MEDICAL HISTORY: See Below PAST SURGICAL HISTORY: See Below FAMILY HISTORY: See Below SOCIAL HISTORY: See Below HOME MEDICATIONS: See Below ALLERGIES: See Below VITALS: See Below PHYSICAL EXAMINATION: GENERAL: The patient is awake and alert. She does not appear to be uncomfortable or anxious. EYES: The conjunctivae are clear. The pupils are round and reactive. EARS, NOSE, MOUTH AND THROAT: The nose is without any evidence of any deformity. Mucous membranes are moist. NECK: The neck is nontender and supple. RESPIRATORY: Normal respiratory effort is noted there is no evidence of wheezing rhonchi or rales CARDIOVASCULAR: Regular rate and rhythm noted there no murmurs rubs or gallops normal S1 normal S2. GASTROINTESTINAL: The abdomen is soft. Abdomen is nontender. MUSCULOSKELETAL/EXTREMITIES: There is no pain with range of motion testing of either hip but there was a small area of abrasion posterior to the right hip. SKIN: There is no obvious evidence of any rash. Skin was warm and dry. NEUROLOGIC: Patient is awake and alert. She recognizes her family. Strength is symmetric but diminished. MEDICAL DECISION MAKING: The patient is an 81-year-old male who presented to the emergency department with family members for an evaluation of generalized weakness and altered mental status and decreased p.o. intake. The family was concerned because the patient does have some degree of dementia but also was found to have some confusion more than baseline. The patient was treated with IV fluids in the emergency department. I discussed the patient's laboratory and radiographic studies with her and her family members. She was found to have an elevation in her creatinine as well as her calcium. The patient was also treated with IV antibiotics for presumed urinary tract infection. I discussed the patient's condition with the emergency department medical case worker. They were able to speak with the patient and the family regarding the possibility of placement. Ultimately they felt the patient might be a better candidate for inpatient management so I discussed this case with the on-call [facility]. They have agreed to evaluate the patient in the emergency department. Triage Nursing notes reviewed. Prior medical records reviewed Vital Signs: reviewed and remarkable for initial hypotension Differential diagnosis: Infection, dehydration, metabolic abnormality, hypo/hyperglycemia, electrolyte disturbance, anemia, hypoxia, cardiac sources, intracerebral event, toxicologic, neurologic, as well as other pathologies. ER treatment provided: See below Diagnostics interpreted by me: ECG: EKG was obtained in the emergency department. My interpretation is normal sinus rhythm at 61 bpm. First-degree AV block was noted. Nonspecific ST segment abnormalities were noted in the apical and low lateral leads. This was compared to a tracing from October. The ST segment abnormalities are new compared to the previous tracing. Cardiac Monitoring: An order was placed for continuous cardiac monitoring. The monitor shows a rate of 60 bpm with sinus rhythm. Laboratory studies: As stated above and show below. Imaging studies: See below Consultation(s): I discussed this case with Maral who is on-call for the [facility] group. 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 Required: No Beliefs That Will Affect Care: None Current Living Situation: Family Current Living Situation Comment: lives with daughter and her fiancee, and son Feels Safe at Home: Yes Assistive Devices: None Allergies Allergies Allergy/AdvReac Type Severity Reaction Status Date / Time No Known Allergies Allergy Unknown Verified 12/17/19 13:21 Home Meds Home Medications Medication Instructions Recorded Confirmed metoprolol succinate 50 mg 50 mg PO DAILY ##0 03/21/06 03/05/22 tablet,extended release 24 hr (Toprol XL) spironolactone 25 1 tab PO DAILY ##0 03/21/06 03/05/22 mg-hydrochlorothiazide 25 mg tablet (Aldactazide) memantine 10 mg tablet (Namenda) 10 mg PO BID 12/17/19 03/05/22 Previous Rx's Medication Instructions Recorded acetaminophen 325 mg tablet (Mapap 650 mg PO Q6H PRN fever or pain 12/20/19 (acetaminophen)) #30 tabs Results & Data (ED) Vital Signs Vital Signs - 24 hr 03/05/22 11:48 03/05/22 12:41 03/05/22 13:42 Temperature 36.6 C Temperature Source Temporal Artery Scan Pulse Rate 86 Pulse Rate [Finger] 60 Pulse Rhythm Respiratory Rate 18 16 Respiratory Effort / Characteristics Non-Labored Respiratory Depth Normal Normal Blood Pressure 87/62 L Blood Pressure [Left Arm] 97/76 L Blood Pressure Mean 70 Blood Pressure Mean [Left Arm] 83 Pulse Oximetry 98 Oxygen Delivery Method Room Air Room Air Room Air Sepsis Recent Fever Within 48 Hours No Sepsis New/Unexplained Change in Mental Status No Sepsis Action Taken by Nursing No Action Required 03/05/22 13:42 Temperature Temperature Source Pulse Rate 60 Pulse Rate [Finger] Pulse Rhythm Regular Respiratory Rate 16 Respiratory Effort / Characteristics Respiratory Depth Blood Pressure Blood Pressure [Left Arm] Blood Pressure Mean Blood Pressure Mean [Left Arm] Pulse Oximetry Oxygen Delivery Method Room Air Sepsis Recent Fever Within 48 Hours Sepsis New/Unexplained Change in Mental Status Sepsis Action Taken by [facility] Medications Current Medication List: was personally reviewed by me Laboratory Data Attestation: I reviewed the patient's lab results. Result diagrams: 03/05/22 12:22 03/05/22 12:22 Lab Results 03/05/22 03/05/22 03/05/22 Range/Units 12:22 12:22 12:22 WBC 8.50 (4.8-10.8) K/ul RBC 5.82 H (3.93-5.22) M/uL Hgb 16.8 H (12.0-16.0) g/dl Hct 48.4 H (34.1-44.9) % MCV 83.2 (80.0-100.0) fL MCH 28.9 (25.0-34.0) pg MCHC 34.7 (32.0-36.0) g/dL RDW Std Deviation 39.7 (36.4-46.3) fL RDW Coeff of Cyndi 13.2 (11.5-14.5) % Plt Count 242 (130-400) K/uL MPV 11.1 (9.4-12.3) fL Immature Gran % (Auto) 0.8 % Neut % (Auto) 75.3 % Lymph % (Auto) 17.3 % Davie % (Auto) 5.5 % Eos % (Auto) 0.7 % Baso % (Auto) 0.4 % Neut # (Auto) 6.40 (1.4-6.5) K/uL Lymph # (Auto) 1.47 (1.2-3.4) K/uL Davie # (Auto) 0.47 (0.24-0.82) K/uL Eos # (Auto) 0.06 (0-0.50) K/uL Baso # (Auto) 0.03 (0-0.2) K/uL Immature Gran # (Auto) 0.07 H (0.00-0.02) K/uL PT 11.3 (9.0-12.0) Seconds INR 1.1 (0.9-1.1) APTT 25.4 (21.0-31.0) Seconds PTT Ratio 0.9 Sodium 137 (136-145) mmol/L Potassium 3.2 L (3.5-5.1) mmol/L Chloride 98 (98-107) mmol/L Carbon Dioxide 30 (21-32) mmol/L Anion Gap 9 (3-11) BUN 24 H (6-23) mg/dl Creatinine 1.26 H (0.6-1.2) mg/dl Est Cr Clr Drug Dosing 30.4 ml/min Est GFR ( Amer) 45.6 ml/min Est GFR (Non-Af Amer) 39.4 ml/min BUN/Creatinine Ratio 19.0 (10-20) Glucose 94 (70-99(Fasting)) mg/dl Calcium 11.2 H (8.5-10.1) mg/dl Magnesium 1.7 (1.7-2.4) mg/dl Total Bilirubin 1.0 (0.2-1.0) mg/dl AST 31 (13-39) U/L ALT 41 (7-52) U/L Alkaline Phosphatase 71 (34-104) U/L Total Creatine Kinase 51 (26-192) U/L Troponin I High Sens 9.0 (0-14) pg/ml Total Protein 7.7 (6.0-8.3) gm/dl Albumin 3.9 (3.4-5.0) gm/dl Globulin 3.8 (2.5-4.0) gm/dl Albumin/Globulin Ratio 1.0 (0.9-2) TSH (0.300-4.500) uIu/ml Urine Color Urine Appearance (Clear) Urine pH (4.5-7.5) Ur Specific [place] (1.000-1.030) Urine Protein (Negative) Urine Glucose (UA) (Negative) Urine Ketones (Negative) Urine Blood (Negative) Urine Nitrite (Negative) Urine Bilirubin (Negative) Urine Urobilinogen (Negative) Ur Leukocyte Esterase (Negative) Urine WBC (Auto) (0-5) /hpf Urine RBC (Auto) (0-4) /hpf U Hyaline Cast (Auto) (0-5) /lpf U Epithel Cells (Auto) (0-5) /lpf Urine Bacteria (Auto) (Negative) 03/05/22 03/05/22 Range/Units 12:22 15:45 WBC (4.8-10.8) K/ul RBC (3.93-5.22) M/uL Hgb (12.0-16.0) g/dl Hct (34.1-44.9) % MCV (80.0-100.0) fL MCH (25.0-34.0) pg MCHC (32.0-36.0) g/dL RDW Std Deviation (36.4-46.3) fL RDW Coeff of Cyndi (11.5-14.5) % Plt Count (130-400) K/uL MPV (9.4-12.3) fL Immature Gran % (Auto) % Neut % (Auto) % Lymph % (Auto) % Davie % (Auto) % Eos % (Auto) % Baso % (Auto) % Neut # (Auto) (1.4-6.5) K/uL Lymph # (Auto) (1.2-3.4) K/uL Davie # (Auto) (0.24-0.82) K/uL Eos # (Auto) (0-0.50) K/uL Baso # (Auto) (0-0.2) K/uL Immature Gran # (Auto) (0.00-0.02) K/uL PT (9.0-12.0) Seconds INR (0.9-1.1) APTT (21.0-31.0) Seconds PTT Ratio Sodium (136-145) mmol/L Potassium (3.5-5.1) mmol/L Chloride (98-107) mmol/L Carbon Dioxide (21-32) mmol/L Anion Gap (3-11) BUN (6-23) mg/dl Creatinine (0.6-1.2) mg/dl Est Cr Clr Drug Dosing ml/min Est GFR ( Amer) ml/min Est GFR (Non-Af Amer) ml/min BUN/Creatinine Ratio (10-20) Glucose (70-99(Fasting)) mg/dl Calcium (8.5-10.1) mg/dl Magnesium (1.7-2.4) mg/dl Total Bilirubin (0.2-1.0) mg/dl AST (13-39) U/L ALT (7-52) U/L Alkaline Phosphatase (34-104) U/L Total Creatine Kinase (26-192) U/L Troponin I High Sens (0-14) pg/ml Total Protein (6.0-8.3) gm/dl Albumin (3.4-5.0) gm/dl Globulin (2.5-4.0) gm/dl Albumin/Globulin Ratio (0.9-2) TSH 2.273 (0.300-4.500) uIu/ml Urine Color Dark Yellow Urine Appearance Cloudy A (Clear) Urine pH 6.0 (4.5-7.5) Ur Specific [place] 1.017 (1.000-1.030) Urine Protein 2+ H (Negative) Urine Glucose (UA) Negative (Negative) Urine Ketones Trace H (Negative) Urine Blood 2+ H (Negative) Urine Nitrite Positive A (Negative) Urine Bilirubin Negative (Negative) Urine Urobilinogen Negative (Negative) Ur Leukocyte Esterase 3+ H (Negative) Urine WBC (Auto) >30 H (0-5) /hpf Urine RBC (Auto) 0-4 (0-4) /hpf U Hyaline Cast (Auto) 0 (0-5) /lpf U Epithel Cells (Auto) 5-10 H (0-5) /lpf Urine Bacteria (Auto) 4+ H (Negative) Administered Medications Discontinued Medications Sodium Chloride (Nss) 500 mls @ 999 mls/hr IV .Q31M MARK Stop: 03/05/22 12:45 Last Infusion: 03/05/22 13:25 Dose: 999 mls/hr Documented By: Admin: 03/05/22 12:37 Dose: 999 mls/hr Documented By: VAP Sodium Chloride (Nss 1000ml) 500 mls @ 999 mls/hr IV .Q31M ONE Stop: 03/05/22 14:27 Last Admin: 03/05/22 16:20 Dose: 999 mls/hr Documented By: VAP Imaging Data Radiologist's Impression: Chest X-Ray 03/05/22 12:08 XR chest 1V portable CLINICAL HISTORY: weakness TECHNIQUE: Single frontal radiograph of the chest was obtained. Comparison: None available at the time of this dictation. FINDINGS: No lines and tubes are seen. The cardiomediastinal silhouette is normal. The lungs are clear. No evidence of pleural effusion or pneumothorax. IMPRESSION: No acute chest disease. ACT 112: Negative or not required by law. Electronically signed by: Rui Paris M.D. 03/05/2022 3:44 PM Hip/Pelvis X-Ray 03/05/22 12:14 SINGLE VIEW PELVIS; 2 VIEWS RIGHT HIP CLINICAL HISTORY: Fall with right hip pain. FINDINGS: An AP view of the pelvis with AP and frog-leg views of the right hip are compared to study dated 12/18/2019. The skeletal structures are osteopenic. There is no radiographic evidence of acute fracture involving the hips or bony pelvis. There is chronic posttraumatic deformity of the right proximal femur with intertrochanteric and intramedullary nails in place. Lucency around the intramedullary nail suggests loosening. Mild to moderate degenerative joint space narrowing is present in both hips. There is mild degenerative sclerosis of the sacroiliac joints. Lumbosacral spondylosis is partially visualized. The overlying soft tissues are within normal limits. Numerous phleboliths are seen in the pelvis. IMPRESSION: 1. No acute bony abnormality is identified. 2. Osteopenia with chronic posttraumatic and postoperative changes as above. 3. Lucency around the intramedullary nail suggests loosening. Electronically signed by: Gray Lafleur M.D. 03/05/2022 3:21 PM Discharge Plan Visit Data Chief Complaint: Altered Mental Status Stated Complaint: NOT EATING,CAN'T WALK,CAN'T SEE,ALZHEIMER PT, UTI ED Provider: Quentin Keita Discharge Problem: Weakness, Hypercalcemia, Urinary tract infection, Acute dehydration, ROSA (acute kidney injury) Patient Disposition: Being Evaluated by Hospitalist Forms Stand Alone Forms: My [facility] [employer] Prescriptions Prescriptions: No Action metoprolol succinate [Toprol XL] 50 mg Tablet Extended Release 24 Hr 50 mg PO DAILY Qty: 0 spironolacton-hydrochlorothiaz [Aldactazide] 25-25 mg Tablet 1 tab PO DAILY Qty: 0 memantine [Namenda] 10 mg tablet 10 mg PO BID acetaminophen [Mapap (acetaminophen)] 325 mg Tablet 650 mg PO Q6H PRN (Reason: fever or pain) Qty: 30 0RF Referrals Referrals: [facility] [Non-Staff] -
[2022-03-05 13:07] LABS: Basophils # (auto) 0.03 K/uL (0-0.2); Basophils % (auto) 0.4 %; Eosinophils # (auto) 0.06 K/uL (0-0.50); Eosinophils % (auto) 0.7 %; Hematocrit (blood only) 48.4 % (34.1-44.9); Hemoglobin 16.8 g/dl (12.0-16.0); Immature Granulocytes # (auto) 0.07 K/uL (0.00-0.02); Immature Granulocytes % (auto) 0.8 %; Lymphocytes # (auto) 1.47 K/uL (1.2-3.4); Lymphocytes % (auto) 17.3 %; Mean Corpuscular Hemoglobin 28.9 pg (25.0-34.0); Mean Corpuscular Hgb Conc 34.7 g/dL (32.0-36.0); Mean Corpuscular Volume 83.2 fL (80.0-100.0); Mean Platelet Volume 11.1 fL (9.4-12.3); Monocytes # (auto) 0.47 K/uL (0.24-0.82); Monocytes % (auto) 5.5 %; Neutrophils % (auto) 75.3 %; Platelet Count 242 K/uL (130-400); RDW Coefficient of Variation 13.2 % (11.5-14.5); RDW Standard Deviation 39.7 fL (36.4-46.3); Red Blood Count 5.82 M/uL (3.93-5.22)
[2022-03-05 13:18] LABS: INR 1.1 (0.9-1.1); Partial Thromboplastin Ratio 0.9; Partial Thromboplastin Time 25.4 Seconds (21.0-31.0); Prothrombin Time 11.3 Seconds (9.0-12.0)
[2022-03-05 13:29] LABS: Albumin Level 3.9 gm/dl (3.4-5.0); Calcium 11.2 mg/dl (8.5-10.1); Creatinine Clr Calc Pharmacy 30.4 ml/min; Est GFR (African American) 45.6 ml/min; Est GFR (Non-African American) 39.4 ml/min; Globulin 3.8 gm/dl (2.5-4.0); Magnesium 1.7 mg/dl (1.7-2.4); Potassium 3.2 mmol/L (3.5-5.1); Total Protein 7.7 gm/dl (6.0-8.3)
[2022-03-05] MEDS ORDERED: SODIUM CHLORIDE 0.9% 1000ML 500 ML IV ONE (13:57)
--- NOTE | 2022-03-05 15:22 | XRay Report ---
SINGLE VIEW PELVIS; 2 VIEWS RIGHT HIP CLINICAL HISTORY: Fall with right hip pain. FINDINGS: An AP view of the pelvis with AP and frog-leg views of the right hip are compared to study dated 12/18/2019. The skeletal structures are osteopenic. There is no radiographic evidence of acute fr acture involving the hips or bony pelvis. There is chronic posttraumatic deformity of the right proxi mal femur with intertrochanteric and intramedullary nails in place. Lucency around the intramedullary nail suggests loosening. Mild to moderate degenerative joint space narrowing is present in both hips . There is mild degenerative sclerosis of the sacroiliac joints. Lumbosacral spondylosis is partially visualized. The overlying soft tissues are within normal limits. Numerous phleboliths are seen in th e pelvis. IMPRESSION: 1. No acute bony abnormality is identified. 2. Osteopenia with chronic posttraumatic and postoperative changes as above. 3. Lucency around the intramedullary nail suggests loosening. Electronically signed by: Gray Lafleur M.D. 03/05/2022 3:21 PM
--- NOTE | 2022-03-05 15:45 | XRay Report ---
XR chest 1V portable CLINICAL HISTORY: weakness TECHNIQUE: Single frontal radiograph of the chest was obtained. Comparison: None available at the time of this dictation. FINDINGS: No lines and tubes are seen. The cardiomediastinal silhouette is normal. The lungs are clear. No evid ence of pleural effusion or pneumothorax. IMPRESSION: No acute chest disease. ACT 112: Negative or not required by law. Electronically signed by: Rui Paris M.D. 03/05/2022 3:44 PM
[2022-03-05 16:17] LABS: Appearance Urine Cloudy (Clear); Bacteria Urine Automated 4+ (Negative); Bilirubin Urine Negative (Negative); Blood Urine 2+ (Negative); Cast Urine Automated 0 /lpf (0-5); Color Urine Dark Yellow; Glucose Urine UA Negative (Negative); Ketones Urine Trace (Negative); Leukocyte Esterase Urine 3+ (Negative); Nitrite Urine Positive (Negative); Protein Urine 2+ (Negative); RBC Urine Automated 0-4 /hpf (0-4); Specific Gravity Urine 1.017 (1.000-1.030); Urobilinogen Urine Negative (Negative); WBC Urine Automated >30 /hpf (0-5)
[2022-03-05] MEDS ORDERED: cefTRIAXone SODIUM 2,000 MG/70 ML BAG IV STA (16:42)
--- NOTE | 2022-03-05 17:25 | Electrocardiogram Report ---
Test Reason : Blood Pressure : / mmHG Vent. Rate : 061 BPM Atrial Rate : 061 BPM P-R Int : 358 ms QRS Dur : 086 ms QT Int : 440 ms P-R-T Axes : 009 039 032 degrees QTc Int : 442 ms Poor data quality, interpretation may be adversely affected Sinus rhythm with 1st degree A-V block Nonspecific ST abnormality Abnormal ECG When compared with ECG of 17-DEC-2019 12:35, No significant change was found Confirmed by Stefan Hoff ([id number]) on 03/05/2022 5:25:31 PM Referred By: Confirmed By:Anselmo Hoff
--- NOTE | 2022-03-05 17:56 | History & Physical Report ---
Date of Service March 05, 2022 Assessment & Plan (1) Weakness: (2) Urinary tract infection: (3) ROSA (acute kidney injury): (4) Hypercalcemia: (5) SARS-CoV-2 positive: (6) Dementia: Plan This is an 81 yr old F who has hx of macular degeneration, dementia, HTN, 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 Generalized Weakness ( 2/2 to recent COVID-19 and UTI) UTI Sars Cov 2 + admit to med/surg continue IV rocephin 2g daily await urine culture PT/OT consulted IVF with [facility] Acute on Chronic CKD 3 - likely pre renal in setting of dehydration Hypercalcemia Hypokalemia 2/2 to poor intake baseline cr 1 will obtain ionized ca in am. continue gentle hydration with NSS +KCL hold hctz, aldactone pt ordered 40meq KCL in ED Polycythemia h/h elevated 16.8/48.4 likely in setting of dehydration monitor cbc Sars Cov2 + pt tested + 2 weeks ago and had mild sx continues to be generally weak and poor appetite but no URI sx will place under isolation for now until discuss with infection control pt took an at home test and therefore not documented date of first + known, family states 2 weeks Dementia of Alzheimer type pt with increased confusion from baseline typically confused but pleasant per family likely worsened in setting of uTI continue namenda and seroquel HTN hold hctz and aldactone monitor bp continue metoprolol Hx of Fall and RLE fracture Abnormal hip/pelvis Xray imaging suggestive of loosening around the IM nail of R hip pt had surgery done by Dr. Bradley will consult UOC DVT ppx: SQ Heparin q12hr Dispo: Med/Surg, pt likely to need placement once medically stable DNR/DNI PCP: Seb Javier PA-C Pt was seen and examined in collaboration with Dr. Lombardo, please see addendum History of Present Illness Chief Complaint: Generalized weakness over last 2 weeks. Primary Care Provider: Seb Javier PA-C This is an 81 yr old F who has hx of macular degeneration, dementia, HTN, 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 Pt had covid-19 2 weeks ago. Since then she been getting continually more weak and confused. She lives at home with her son. Son and daughter are at bedside. When she had covid her sx were mostly cough, aches, fatigue, weakness and headache. She tested positive with at home test two weeks ago. Over past 2 weeks she stayed upstairs in her sons house due to not feeling well and weakness. Over the last 2 weeks she has been complaining of R hip pain. No recent fall. Pt did complain of dysuria last night, but family denies known hematuria, increased urg/freq with urination, f/c/s, chest pain, sob, n/v/d. She has been using ibuprofen for hip pain. Family states 2 weeks ago she complains of worsened vision loss. No hx of UTI in past. They do not feel its safe for her to return home and are looking at possible placement in the future. In ED patient remained hemodynamically stable but was much more confused and forthcoming per family. Normally despite dementia she is very pleasant and cooperative. Lab work revealed H&H 16.8 and 48.4, K3.2, BUN 24, creatinine 1.26, calcium 11.2 and urinalysis consistent with UTI. She is still testing positive for SARS-CoV-2. Due to patient reporting vision loss she did undergo CT of her head which was negative for any acute abnormality. Chest x- ray did not show any acute disease. Hip and pelvis x-ray reveal lucency around the intramedullary nail suggesting loosening of prior right hip surgery. She did receive IV fluids and 2 g of IV Rocephin in ED. Allergies Allergy/AdvReac Type Severity Reaction Status Date / Time No Known Allergies Allergy Unknown Verified 12/17/19 13:21 Home Medications Medication Instructions Recorded Confirmed Type metoprolol succinate 50 mg 50 mg PO DAILY ##0 03/21/06 03/05/22 History tablet,extended release 24 hr (Toprol XL) memantine 10 mg tablet (Namenda) 10 mg PO BID 12/17/19 03/05/22 History hydrochlorothiazide 25 mg tablet 25 mg PO DAILY 03/05/22 03/05/22 History mirtazapine 30 mg tablet 30 mg PO HS 03/05/22 03/05/22 History quetiapine 25 mg tablet 25 mg PO BID 03/05/22 03/05/22 History spironolactone 25 mg tablet 12.5 mg PO DAILY 03/05/22 03/05/22 History Past Med/Surg History Medical History Alzheimer's dementia Dementia HTN (hypertension) Peripheral neuropathy Renal cell cancer Stage 3a chronic kidney disease (CKD) Surgical History Hip fracture, right Hx of partial nephrectomy Right, s/p RCC Family History Mother Heart disease Sister Hypertension Son Hypertension Father Lung disease Social History (Updated 03/05/22 @ 19:16 by Maral Ortega PA-C) Smoking Status: Never smoker Second Hand Exposure: No; Hx Alcohol Use: No Hx Substance Use: No Preferred Language: Burkinan Communication Ability: Impaired Communication Ability Comment: dementia Secondary Special Education Teacher Required: No Beliefs That Will Affect Care: None Current Living Situation: Family Current Living Situation Comment: lives with son Daniel Feels Safe at Home: Yes Assistive Devices: None Review of Systems Review of Systems: Unobtainable due to cognitive status Hx provided by family. Physical Exam Physical Exam: please refer to Dr. Lombardo addendum for physical exam findings. Results & Data Results & Data ([facility]) Vital Signs (Past 12 Hours) Vital Signs Temp Pulse Pulse Resp BP BP Pulse Ox 03/05/22 17:47 62 16 122/60 98 03/05/22 13:42 60 16 03/05/22 13:42 60 16 97/76 L 98 03/05/22 12:41 03/05/22 11:48 36.6 C 86 18 87/62 L O2 Del Method 03/05/22 17:47 Room Air 03/05/22 13:42 Room Air 03/05/22 13:42 Room Air 03/05/22 12:41 Room Air 03/05/22 11:48 Room Air Diagnostic Findings Chest X-Ray 03/05/22 12:08 XR chest 1V portable CLINICAL HISTORY: weakness TECHNIQUE: Single frontal radiograph of the chest was obtained. Comparison: None available at the time of this dictation. FINDINGS: No lines and tubes are seen. The cardiomediastinal silhouette is normal. The lungs are clear. No evidence of pleural effusion or pneumothorax. IMPRESSION: No acute chest disease. ACT 112: Negative or not required by law. Electronically signed by: Rui Paris M.D. 03/05/2022 3:44 PM Hip/Pelvis X-Ray 03/05/22 12:14 SINGLE VIEW PELVIS; 2 VIEWS RIGHT HIP CLINICAL HISTORY: Fall with right hip pain. FINDINGS: An AP view of the pelvis with AP and frog-leg views of the right hip are compared to study dated 12/18/2019. The skeletal structures are osteopenic. There is no radiographic evidence of acute fracture involving the hips or bony pelvis. There is chronic posttraumatic deformity of the right proximal femur with intertrochanteric and intramedullary nails in place. Lucency around the intramedullary nail suggests loosening. Mild to moderate degenerative joint space narrowing is present in both hips. There is mild degenerative sclerosis of the sacroiliac joints. Lumbosacral spondylosis is partially visualized. The overlying soft tissues are within normal limits. Numerous phleboliths are seen in the pelvis. IMPRESSION: 1. No acute bony abnormality is identified. 2. Osteopenia with chronic posttraumatic and postoperative changes as above. 3. Lucency around the intramedullary nail suggests loosening. Electronically signed by: Gray Lafleur M.D. 03/05/2022 3:21 PM Medications Administered Medication List Discontinued Medications Sodium Chloride (Nss) 500 mls @ 999 mls/hr IV .Q31M MARK Stop: 03/05/22 12:45 Last Infusion: 03/05/22 13:25 Dose: 999 mls/hr Documented By: Admin: 03/05/22 12:37 Dose: 999 mls/hr Documented By: VAP Sodium Chloride (Nss 1000ml) 500 mls @ 999 mls/hr IV .Q31M ONE Stop: 03/05/22 14:27 Last Admin: 03/05/22 16:20 Dose: 999 mls/hr Documented By: ELLY ECG Rate (beats per minute): 61 Rhythm: normal sinus Findings: + 1st degree AV block COVID-19 Results Results COVID-19 Adm Lab Results: RBC 5.82 M/uL (3.93-5.22) H 03/05/22 WBC 8.50 K/ul (4.8-10.8) 03/05/22 Hgb 16.8 g/dl (12.0-16.0) H 03/05/22 Hct 48.4 % (34.1-44.9) H 03/05/22 Plt Count 242 K/uL (130-400) 03/05/22 Neutrophils (%) (Auto) 75.3 % 03/05/22 Lymphocytes (%) (Auto) 17.3 % 03/05/22 Monocytes # (Auto) 0.47 K/uL (0.24-0.82) 03/05/22 Eosinophils # (Auto) 0.06 K/uL (0-0.50) 03/05/22 Immature Granulocyte % (Auto) 0.8 % 03/05/22 Neutrophils # (Auto) 6.40 K/uL (1.4-6.5) 03/05/22 Lymphocytes # (Auto) 1.47 K/uL (1.2-3.4) 03/05/22 Monocytes # (Auto) 0.47 K/uL (0.24-0.82) 03/05/22 Eosinophils # (Auto) 0.06 K/uL (0-0.50) 03/05/22 Basophils # (Auto) 0.03 K/uL (0-0.2) 03/05/22 Immature Granulocyte # (Auto) 0.07 K/uL (0.00-0.02) H 03/05 Na 137 mmol/L (136-145) 03/05/22 K 3.2 mmol/L (3.5-5.1) L 03/05/22 Cl 98 mmol/L (98-107) 03/05/22 CO2 30 mmol/L (21-32) 03/05/22 Anion Gap 9 (3-11) 03/05/22 BUN 24 mg/dl (6-23) H 03/05/22 Creatinine 1.26 mg/dl (0.6-1.2) H 03/05/22 BUN/Creatinine Ratio 19.0 (10-20) 03/05/22 Glucose Level 94 mg/dl (70-99(Fasting)) 03/05/22 Ca 11.2 mg/dl (8.5-10.1) H 03/05/22 Total Bilirubin 1.0 mg/dl (0.2-1.0) 03/05/22 AST/SGOT 31 U/L (13-39) 03/05/22 ALT/SGPT 41 U/L (7-52) 03/05/22 Alkaline Phosphatase 71 U/L (34-104) 03/05/22 Total Protein 7.7 gm/dl (6.0-8.3) 03/05/22 Albumin 3.9 gm/dl (3.4-5.0) 03/05/22 Globulin 3.8 gm/dl (2.5-4.0) 03/05/22 Albumin/Globulin Ratio 1.0 (0.9-2) 03/05/22 Total CK 51 U/L (26-192) 03/05/22 PTT 25.4 Seconds (21.0-31.0) 03/05/22 INR 1.1 (0.9-1.1) 03/05/22 SARS-CoV-2, RNA, NAAT POSITIVE (NEGATIVE) A* 03/05/22 Chest X-Ray 03/05/22 Code Status & VTE Plan Code Status DNR/DNI Supervising Physician Co-Signing Physician Notes Patient is an 81-year-old female with history of dementia, renal cell carcinoma S/P partial nephrectomy, who was recently diagnosed to have COVID 2 weeks ago presents with history of worsening confusion and generalized weakness. Patient unable to provide much history secondary to dementia. Most of the history is obtained from patient's family. Patient was noted to have generalized weakness, poor oral intake and increased confusion since infection with COVID. She also complains of right hip pain but denies any fall. Patient admitted to the family that since last night patient was having dysuria but no known history of hematuria. Family also reports patient to have worsening vision loss 2 weeks ago but states that she has history of macular degeneration and was also thought to have cataracts. Please review HPI for complete details of presentation. Blood work showed hemoglobin 16.8, WBC 8.5, hematocrit 48.4, platelet 242, sodium 137, potassium 3.2, bicarbonate 30, BUN 24, creatinine 1.26, glucose 94, magnesium 1.7. TSH 2.27. Urine analysis showed findings suggestive of UTI. Her COVID screen is positive. CT head showed no acute process. Right hip x-ray showed no acute bony abnormality but showed findings suggestive of osteopenia with chronic posttraumatic and postoperative changes, lucency around the intramedullary nail suggest loosening. Chest x-ray showed no acute process. Urine culture is pending. EKG showed sinus rhythm with first-degree AV block, nonspecific ST changes, QTC 442. Physical Exam: Vitals signs as noted above General Appearance: Thin, frail, elderly, no apparent distress Head: normocephalic, Atraumatic Eyes: normal inspection, EOMI Neck: supple, Trachea midline Respiratory/Chest: Normal breath sounds, CTA, No accessory muscle use Cardiovascular: S1, S2, No murmur Abdomen/GI:Soft, Non tender, Bowel sounds present Extremities/Musculoskeletal:normal inspection, no edema, R hip tender. Neurologic/Psych:AAOx1, grossly no focal neurological deficits, +Dementia Skin: normal color, warm Generalized weakness Recent COVID infection UTI ROSA Gentle IV fluids, IV Rocephin PT OT Fall precautions Hold HCTZ for now. Right hip hardware loosening Orthopedics consulted Replace electrolytes as needed Dementia Reorient frequently Acute metabolic encephalopathy likely secondary to UTI I personally reviewed the record. Patient is interviewed and examined at bedside. Patient's care is coordinated with Maral Ortega PA-C. Please refer to the documentation above for details of patient's presentation and for discussion of other issues. (1) Urinary tract infection Hematuria presence: without hematuria Urinary tract infection type: site unspecified Qualified Code(s): N39.0 - Urinary tract infection, site not specified (2) Dementia Dementia behavioral disturbance: without behavioral disturbance Dementia type: unspecified type Qualified Code(s): F03.90 - Unspecified dementia without behavioral disturbance
[2022-03-05] MEDS ORDERED: POTASSIUM CHLORIDE CRTAB 20 MEQ TABCR PO STA (18:01)
--- NOTE | 2022-03-05 19:01 | CT Scan Report ---
CT SCAN OF THE BRAIN WITHOUT IV CONTRAST CLINICAL HISTORY: Vision loss. COMPARISON STUDY: CT of the brain dated 12/17/2019. TECHNIQUE: Unenhanced axial CT scan of the brain is performed from the vertex to the skull base. A do se lowering technique was utilized adhering to the principles of ALARA. The skull base was scanned tw ice due to motion artifact. CT DOSE: 1305.31 mGy.cm FINDINGS: Brain parenchyma: There is age-related involutional change noting mild subcortical and periventricula r microangiopathic disease. There is no hemorrhage, mass effect, or evidence of acute territorial isc hemia by CT criteria. [place]-white matter differentiation is preserved. No extra-axial fluid collection is seen. Ventricles, sulci, cisterns: Prominent secondary to involutional change. Intracranial vasculature: There is atherosclerotic calcification of the cavernous carotid and vertebr al arteries. Calvarium: Unremarkable. Sinuses and mastoids: There is near complete opacification of the sphenoid sinuses. Thickening and sc lerosis of the sinus dillard indicates chronicity. Mild mucosal thickening is noted in the ethmoid sinu ses. The mastoid air cells are well pneumatized. Orbits: The bony orbits are grossly intact. IMPRESSION: There is no hemorrhage, mass effect, or evidence of acute territorial ischemia by CT shannan poole. ACT 112: Negative or not required by law. Electronically signed by: Gray Lafleur M.D. 03/05/2022 7:00 PM
--- NOTE | 2022-03-05 19:31 | Communication Note ---
Date of Service: March 05, 2022 Pt Son Daniel [phone] is the primary contact He wishes to be contacted daily for updates Tremayne Ortega PA-C
[2022-03-06] MEDS ORDERED: ONDANSETRON INJ 2 MG/ML 2 ML VIAL IV PRN (01:07)
[2022-03-06] MEDS ORDERED: ACETAMINOPHEN 325 MG TAB PO PRN (01:07)
[2022-03-06] MEDS ORDERED: NSS + 20MEQ KCL 20 MEQ/1,000 ML BAG IV SCH (01:30)
[2022-03-06] MEDS: HEPARIN SOD 5,000 UNIT/0.5 ML VIAL SQ SCH ×5 (04:21→21:03)
[2022-03-06] MEDS: QUEtiapine FUMARATE 25 MG TABLET PO SCH ×3 (04:22→20:57)
[2022-03-06] MEDS: MEMANTINE HCL 10 MG TAB PO SCH ×3 (04:22→20:56)
[2022-03-06 07:41] LABS: Hematocrit (blood only) 40.8 % (34.1-44.9); Hemoglobin 13.7 g/dl (12.0-16.0); Mean Corpuscular Hemoglobin 28.6 pg (25.0-34.0); Mean Corpuscular Hgb Conc 33.6 g/dL (32.0-36.0); Mean Corpuscular Volume 85.2 fL (80.0-100.0); Mean Platelet Volume 10.9 fL (9.4-12.3); Platelet Count 203 K/uL (130-400); RDW Coefficient of Variation 13.1 % (11.5-14.5); RDW Standard Deviation 40.9 fL (36.4-46.3); Red Blood Count 4.79 M/uL (3.93-5.22)
[2022-03-06 08:03] LABS: Albumin Level 3.2 gm/dl (3.4-5.0); BUN Creatinine Ratio 19.8 (10-20); Bilirubin,Total 0.6 mg/dl (0.2-1.0); Calcium 9.9 mg/dl (8.5-10.1); Est GFR (African American) 59.6 ml/min; Est GFR (Non-African American) 51.4 ml/min; Globulin 3.1 gm/dl (2.5-4.0); Total Protein 6.3 gm/dl (6.0-8.3)
[2022-03-06] MEDS: METOPROLOL SUCC 50MG EXT REL TAB PO SCH (08:10)
--- NOTE | 2022-03-06 13:38 | Hospitalist Progress Note ---
Date of Service March 06, 2022 Assessment & Plan (1) Weakness: (2) Urinary tract infection: (3) ROSA (acute kidney injury): (4) Hypercalcemia: (5) SARS-CoV-2 positive: (6) Dementia: Plan This is an 81 yr old F who has hx of macular degeneration, dementia, HTN, 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 Generalized Weakness ( 2/2 to recent COVID-19 and UTI) UTI Sars Cov 2 + admit to med/surg continue IV rocephin 2g daily await urine culturegram-negative bacilli growing PT/OT consulted IVF with [facility] Acute on Chronic CKD 3 - likely pre renal in setting of dehydration Hypercalcemia Hypokalemia 2/2 to poor intake baseline cr 1 will obtain ionized ca in am. continue gentle hydration with NSS +KCL hold hctz, aldactone pt ordered 40meq KCL in ED Polycythemia h/h elevated 16.8/48.4 likely in setting of dehydration monitor cbc Sars Cov2 + pt tested + 2 weeks ago and had mild sx continues to be generally weak and poor appetite but no URI sx will place under isolation for now until discuss with infection control pt took an at home test and therefore not documented date of first + known, family states 2 weeks Dementia of Alzheimer type pt with increased confusion from baseline typically confused but pleasant per family likely worsened in setting of uTI continue namenda and seroquel HTN hold hctz and aldactone monitor bp continue metoprolol Hx of Fall and RLE fracture Abnormal hip/pelvis Xray imaging suggestive of loosening around the IM nail of R hip pt had surgery done by Dr. Bradley Discussed with ToddDr. Moss will be looking at the images DVT ppx: SQ Heparin q12hr Dispo: Med/Surg, pt likely to need placement once medically stable DNR/DNI PCP: Seb Javier PA-C Pt was seen and examined in collaboration with Dr. Lombardo, please see addendum Admission and Anticipated Discharge Date Admission Date: March 05, 2022 Subjective Patient comfortable laying down in bed. States she just had food. No new complaints. Not wearing any oxygen. Discussed with patient's son Daniel at [phone]. Provided an update and answered questions. Review of Systems Review of Systems: All systems reviewed and negative other than as described above in the history and physical Physical Exam Physical Exam: General Appearance: Thin, frail, elderly, no apparent distress Head: normocephalic, Atraumatic Eyes: normal inspection, EOMI Neck: supple, Trachea midline Respiratory/Chest: Normal breath sounds, CTA, No accessory muscle use Cardiovascular: S1, S2, No murmur Abdomen/GI:Soft, Non tender, Bowel sounds present Extremities/Musculoskeletal:normal inspection, no edema, R hip tender. Neurologic/Psych:AAOx1, Results & Data Results & Data ([facility]) Vital Signs (Past 12 Hours) Vital Signs Temp Pulse Resp BP Pulse Ox O2 Del Method 03/06/22 09:55 Room Air 03/06/22 08:45 36.7 C 75 16 106/64 94 Room Air 03/06/22 08:13 36.9 C 75 24 106/69 94 Room Air Laboratory Results Short CBC 03/06/22 Range/Units 07:10 WBC 8.10 (4.8-10.8) K/ul Hgb 13.7 D (12.0-16.0) g/dl Hct 40.8 (34.1-44.9) % Plt Count 203 (130-400) K/uL BMP 03/06/22 07:10 Sodium 136 Potassium 4.0 D Chloride 103 Carbon Dioxide 27 BUN 20 Creatinine 1.01 Glucose 84 Calcium 9.9 Liver Function 03/06/22 Range/Units 07:10 Total Bilirubin 0.6 (0.2-1.0) mg/dl AST 29 (13-39) U/L ALT 34 (7-52) U/L Alkaline Phosphatase 58 (34-104) U/L Albumin 3.2 L (3.4-5.0) gm/dl Urine 03/05/22 Range/Units 15:45 Urine Color Dark Yellow Urine Appearance Cloudy A (Clear) Urine pH 6.0 (4.5-7.5) Ur Specific Ashley 1.017 (1.000-1.030) Urine Protein 2+ H (Negative) Urine Glucose (UA) Negative (Negative) (1) Urinary tract infection Hematuria presence: without hematuria Urinary tract infection type: site unspecified Qualified Code(s): N39.0 - Urinary tract infection, site not specified (2) Dementia Dementia behavioral disturbance: without behavioral disturbance Dementia type: unspecified type Qualified Code(s): F03.90 - Unspecified dementia without behavioral disturbance
[2022-03-06] MEDS ORDERED: cefTRIAXone SODIUM 2,000 MG in DEXTROSE 5% 50 ML IV SCH (18:00)
[2022-03-07] MEDS: HEPARIN SOD 5,000 UNIT/0.5 ML VIAL SQ SCH ×3 (09:17→22:20)
[2022-03-07] MEDS: MEMANTINE HCL 10 MG TAB PO SCH ×2 (09:18→22:16)
[2022-03-07] MEDS: METOPROLOL SUCC 50MG EXT REL TAB PO SCH (09:18)
[2022-03-07] MEDS: QUEtiapine FUMARATE 25 MG TABLET PO SCH ×2 (09:18→22:16)
--- NOTE | 2022-03-07 13:02 | Hospitalist Progress Note ---
Date of Service March 07, 2022 Assessment & Plan (1) Weakness: (2) Urinary tract infection: (3) ROSA (acute kidney injury): (4) Hypercalcemia: (5) SARS-CoV-2 positive: (6) Dementia: Plan This is an 81 yr old F who has hx of macular degeneration, dementia, HTN, 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 Generalized Weakness ( 2/2 to recent COVID-19 and UTI) UTI Sars Cov 2 + admit to med/surg E. coli growingpan sensitiveinitiated Keflex. PT/OT consulted IVF with [facility] Acute on Chronic CKD 3 - likely pre renal in setting of dehydration Hypercalcemia Hypokalemia 2/2 to poor intake baseline cr 1 will obtain ionized ca in am. continue gentle hydration with NSS +KCL hold hctz, aldactone pt ordered 40meq KCL in ED Polycythemia h/h elevated 16.8/48.4 likely in setting of dehydration monitor cbc Sars Cov2 + pt tested + 2 weeks ago and had mild sx continues to be generally weak and poor appetite but no URI sx will place under isolation for now until discuss with infection control pt took an at home test and therefore not documented date of first + known, family states 2 weeks Dementia of Alzheimer type pt with increased confusion from baseline typically confused but pleasant per family likely worsened in setting of uTI continue namenda and seroquel HTN hold hctz and aldactone monitor bp continue metoprolol Hx of Fall and RLE fracture Abnormal hip/pelvis Xray imaging suggestive of loosening around the IM nail of R hip pt had surgery done by Dr. Bradley Discussed with ToddDr. Moss will be looking at the imagesdiscussed yesterday. Have not located a note from them yet. DVT ppx: SQ Heparin q12hr Dispo: Med/Surg, pt likely to need placement once medically stable DNR/DNI Discussed with case management. Patient will need placement. As per family wishes. Likely further progress will be made on Wednesday. Admission and Anticipated Discharge Date Admission Date: March 05, 2022 Subjective Patient comfortable laying down in bed. Not wearing oxygen. States she is comfortable. Baseline confused. States she wants to defecate. Discussed with nurse. No complaints noted by nurse. COVID positive. Not requiring oxygenation. Previouslydiscussed with patient's son Daniel at [phone]. Provided an update and answered questions. Review of Systems Review of Systems: All systems reviewed and negative other than as described above in the history and physical Physical Exam Physical Exam: General Appearance: Thin, frail, elderly, no apparent distress Head: normocephalic, Atraumatic Eyes: normal inspection, EOMI Neck: supple, Trachea midline Respiratory/Chest: Normal breath sounds, CTA, No accessory muscle use Cardiovascular: S1, S2, No murmur Abdomen/GI:Soft, Non tender, Bowel sounds present Extremities/Musculoskeletal:normal inspection, no edema, R hip tender. Neurologic/Psych:AAOx1, Results & Data Results & [facility] ([facility]) Vital Signs (Past 12 Hours) Vital Signs Temp Pulse Resp BP Pulse Ox O2 Del Method 03/07/22 10:07 Room Air 03/07/22 08:00 36.9 C 75 18 113/68 95 Room Air (1) Urinary tract infection Hematuria presence: without hematuria Urinary tract infection type: site unspecified Qualified Code(s): N39.0 - Urinary tract infection, site not specified (2) Dementia Dementia behavioral disturbance: without behavioral disturbance Dementia type: unspecified type Qualified Code(s): F03.90 - Unspecified dementia without behavioral disturbance
--- NOTE | 2022-03-07 17:56 | Consultation Report ---
DATE OF CONSULTATION: 03/07/2022. HISTORY OF PRESENT ILLNESS: This is an 81-year-old female seen at the request of Dr. Arthur Lombardo as the patient was admitted for weakness, urinary tract infection, acute kidney injury and hypercalcemia with SARS-CoV-2 positive with dementia. Radiographs were obtained of the patient's right hip, an incidental finding of lucency on the radiographs, there was question regarding significance of said lucency. Orthopedics was consulted. The patient had no complaints of hip pain prior to admission and during examination the patient was queried regarding hip pain. The patient denies hip pain. The patient did request ice cream however. Rest of the history is obtained from the chart and from discussion with the nursing staff. The patient had no complaints of hip pain in the nursing staff. The patient did have ORIF of right hip fracture performed in [address] Lacho Bradley and had an essentially uncomplicated recovery course. PAST MEDICAL HISTORY: Macular degeneration, dementia, hypertension, right renal cell carcinoma, neuropathy, generalized weakness, recent coronavirus positive 2 weeks prior to admission. Apparently, the patient had been experiencing generalized weakness over 2 weeks. After she contracted coronavirus, she was continually more weak and confused. She lives at home with her son. COVID symptoms were cough, aches, fatigue, weakness and headache. The patient has some complaints of dysuria and per history collected by the medicine service, the patient had some complaints of right hip pain. PAST SURGICAL HISTORY: Right renal cell carcinoma with partial nephrectomy, right hip fracture repair [address] Bradley. ALLERGIES: No known drug allergies. MEDICATIONS: Metoprolol, memantine, hydrochlorothiazide, mirtazapine, quetiapine, spironolactone. SOCIAL HISTORY: The patient denies tobacco, alcohol, or drug use. She has dementia, lives with her family. She is retired. PHYSICAL EXAMINATION: This is an 81-year-old female, lying supine in hospital room bed in the coronavirus isolation unit. The patient was sleeping. She was aroused easily, conversant, somewhat confused. She did request ice cream during the consultation without prompting. The patient denied any hip pain. Upon examination with internal and external rotation of the right hip, flexion, extension, abduction and adduction. No mechanical blocks to active or passive range of motion of the right hip. Well-healed surgical incisions from trochanteric nailing. No tenderness at the groin. No tenderness over the greater trochanter. Radiographs reviewed demonstrating stable trochanteric nail, right hip. Subtle lucency around the proximal portion of the nail with sclerotic halo consistent with stress shielding and lucency. No evidence of windshield wiper effect. The nail appears otherwise stable. No acute fractures. Overall, osteopenia is appreciated. IMPRESSION: Status post right trochanteric nailing, radiographic lucency proximal nail. RECOMMENDATION: Physical therapy and conservative management at this time. Should the patient have consistent complaints of right hip pain, would recommend CT scan of the right hip to more clearly define whether this is a benign osteolysis or lucency around the nail. Thank you for the opportunity to consult in the care of this patient. Job ID: [id number] CRYSTAL
[2022-03-07] MEDS: cephALEXin 500 MG CAP PO SCH ×2 (18:27→22:16)
[2022-03-08] MEDS: HEPARIN SOD 5,000 UNIT/0.5 ML VIAL SQ SCH ×2 (08:43→22:09)
[2022-03-08] MEDS: METOPROLOL SUCC 50MG EXT REL TAB PO SCH (08:43)
[2022-03-08] MEDS: QUEtiapine FUMARATE 25 MG TABLET PO SCH ×2 (08:43→22:09)
[2022-03-08] MEDS: cephALEXin 500 MG CAP PO SCH ×2 (08:43→13:12)
[2022-03-08] MEDS: MEMANTINE HCL 10 MG TAB PO SCH ×2 (08:43→22:09)
--- NOTE | 2022-03-08 15:54 | Hospitalist Progress Note ---
Date of Service March 08, 2022 Assessment & Plan (1) Weakness: (2) Urinary tract infection: (3) ROSA (acute kidney injury): (4) Hypercalcemia: (5) SARS-CoV-2 positive: (6) Dementia: Plan This is an 81 yr old F who has hx of macular degeneration, dementia, HTN, 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 Found to have UTI Ecoli UTI- pansensitive. Will continue macrobid D2/7. Generalized Weakness ( 2/2 to recent COVID-19 and UTI)- PT/OT eval pending. Sars Cov 2 +: asymptomatic. Covid positive for more than 2 weeks now. Likely virus and non infectious. Acute on Chronic CKD 3 - likely pre renal in setting of dehydration. resolved. Hypercalcemia- d/t dehydration and HCTZ. resolved. HCTZ on hold. Hypokalemia- resolved. Polycythemia- relative due to dehydration. resolved. 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 Increased confusion from baseline, could be due to her visual issues and UTI. Plan to see ophthalmology as OP per daughter. - continue namenda and seroquel HTN- hold hctz and aldactone. continue metoprolol Hx of Fall and RLE fracture Abnormal hip/pelvis Xray imaging suggestive of loosening around the IM nail of R hip pt had surgery done by Dr. Bradley - seen by ortho- getting CT right hip as unable to work with PT today due to pain. DVT ppx: SQ Heparin q12hr Dispo: pending CT. Pending PT eval. Will likely need placement Updated daughter over the phone Admission and Anticipated Discharge Date Admission Date: March 05, 2022 Subjective She is demented and unreliable historian. Did not complain of any pain to me or orthopedic physician but she complained of pain to PT and was unable to participate in therapy. Denies any other issues. Per her daughter Taylor, she has h/o macular degeneration and could not see for the past week and that is the reason she might be agitated- they are trying to get her see to an patternmaker. Physical Exam Physical Exam: General: Elderly female, lying comfortably in bed, not in distress, on room air Chest: Fair breath sounds bilaterally, no wheezes or crackles CVS: Regular rate and rhythm, normal heart sounds, no murmur Abdomen: Soft, non tender, not distended, normal bowel sounds Neuro: Awake, alert, demented, conversing okay. Moving all extremities independently Extremities: No edema. No tenderness on palpation of bilateral hip. Results & Data Results & Data ([facility] [place]) Vital Signs (Past 12 Hours) Vital Signs Temp Pulse Resp BP Pulse Ox O2 Del Method 03/08/22 08:20 Room Air 03/08/22 08:38 36.6 C 75 16 110/78 95 Room Air Medications Administered Current Inpatient Medications Acetaminophen (Acetaminophen 325 Mg Tab) 650 mg PO Q4H PRN PRN Reason: Moderate Pain Stop: 04/05/22 01:06 Cephalexin HCl (Cephalexin 250 Mg Cap) 250 mg PO QID [facility]; Protocol Stop: 03/13/22 16:59 Heparin Sodium (Porcine) (Heparin Sod 5,000 Unit/0.5 Ml Vial) 5,000 units SQ Q12 [facility] Stop: 04/05/22 01:06 Last Admin: 03/08/22 08:43 Dose: Not Given Memantine (Memantine Hcl 10 Mg Tab) 10 mg PO BID [facility] Stop: 04/05/22 01:06 Last Admin: 03/08/22 08:43 Dose: 10 mg Metoprolol Succinate (Metoprolol Succ 50mg Ext Rel Tab) 50 mg PO DAILY [facility] Stop: 04/05/22 08:59 Last Admin: 03/08/22 08:43 Dose: 50 mg Ondansetron HCl (Ondansetron Inj 2 Mg/Ml 2 Ml Vial) 4 mg IV Q4H PRN PRN Reason: Nausea And Vomiting Stop: 04/05/22 01:06 Quetiapine Fumarate (Quetiapine Fumarate 25 Mg Tablet) 25 mg PO BID [facility] Stop: 04/05/22 01:06 Last Admin: 03/08/22 08:43 Dose: 25 mg (1) Urinary tract infection Hematuria presence: without hematuria Urinary tract infection type: site unsp ecified Qualified Code(s): N39.0 - Urinary tract infection, site not specified (2) Dementia Dementia behavioral disturbance: without behavioral disturbance Dementia type: unspecified type Qualified Code(s): F03.90 - Unspecified dementia without behavioral disturbance
[2022-03-08] MEDS ORDERED: cephALEXin 250 MG CAP PO SCH (17:00)
[2022-03-08] MEDS ORDERED: OPTIRAY 300 100mL IV ONE (17:42)
--- NOTE | 2022-03-08 20:25 | CT Scan Report ---
CT hip RT w con HISTORY: right hip pain, abn xray TECHNIQUE: Multiaxial CT images of the right hip were performed following the intravenous administrat ion of 90 cc of Optiray 300 and reformatted in the sagittal and coronal plane. COMPARISON STUDY: Right hip radiograph 03/05/2022. FINDINGS: Suboptimal evaluation of the right hip due to the metallic artifact from the proximal intra medullary femoral lelia and interlocking femoral neck pin. These traverse the old, healed intertrochant lilia fracture. Periprosthetic lucency within the proximal portion of the intramedullary femoral lelia w hich measures up to 3 mm. This is considered abnormal. No abnormal periprosthetic lucency at the femo ral neck pin. No acute fracture or dislocation within the right hip. The visualized pelvic bones are intact. There is mild subcutaneous fat stranding within the right lateral hip. Within the deep subcut aneous to soft tissues of the right lateral hip there is a peripherally enhancing 3.3 x 2.9 x 2.5 cm hypodensity which likely abuts the lateral surface of the proximal femur/greater trochanter. This lik ike represents an abscess given the surrounding mild inflammatory change. No significant hip effusion . IMPRESSION: 1. A 3.3 x 2.0 x 2.5 cm peripheral enhancing hypodense collection within the soft tissues of the righ t lateral hip which appears to abut the lateral surface of the proximal femur/greater trochanter. Thi s likely represents an abscess given the surrounding inflammatory change. 2. Mild periprosthetic lucency within the proximal portion of the right femoral intramedullary lelia wh ich is in close proximity to the suspected abscess. Therefore, secondary infection would be the diagn osis of exclusion. ACT 112: Negative or not required by law. Electronically signed by: Alejandro Gilbert M.D. 03/08/2022 8:23 PM
[2022-03-08] MEDS ORDERED: NITROFURANTOIN MONOHYDRATE 100 MG CAP PO SCH (21:00)
[2022-03-09] MEDS: HEPARIN SOD 5,000 UNIT/0.5 ML VIAL SQ SCH ×2 (07:48→20:26)
[2022-03-09] MEDS: MEMANTINE HCL 10 MG TAB PO SCH ×2 (08:01→20:25)
[2022-03-09] MEDS: QUEtiapine FUMARATE 25 MG TABLET PO SCH ×2 (08:01→20:25)
[2022-03-09] MEDS: METOPROLOL SUCC 50MG EXT REL TAB PO SCH (08:06)
[2022-03-09 08:34] LABS: Hematocrit (blood only) 42.6 % (34.1-44.9); Hemoglobin 14.1 g/dl (12.0-16.0); Mean Corpuscular Hemoglobin 28.7 pg (25.0-34.0); Mean Corpuscular Hgb Conc 33.1 g/dL (32.0-36.0); Mean Corpuscular Volume 86.6 fL (80.0-100.0); Mean Platelet Volume 10.6 fL (9.4-12.3); Platelet Count 214 K/uL (130-400); RDW Coefficient of Variation 13.3 % (11.5-14.5); RDW Standard Deviation 42.1 fL (36.4-46.3); Red Blood Count 4.92 M/uL (3.93-5.22); White Blood Count 7.92 K/ul (4.8-10.8)
[2022-03-09 08:56] LABS: BUN Creatinine Ratio 17.8 (10-20); Calcium 10.4 mg/dl (8.5-10.1); Est GFR (African American) 59.6 ml/min; Est GFR (Non-African American) 51.4 ml/min; Magnesium 1.7 mg/dl (1.7-2.4); Phosphorus 2.6 mg/dl (2.5-4.9); Potassium 4.2 mmol/L (3.5-5.1)
[2022-03-09] MEDS ORDERED: cefTRIAXone SODIUM 2,000 MG in DEXTROSE 5% 50 ML IV SCH (09:00)
[2022-03-09] MEDS: cephALEXin 500 MG CAP PO SCH ×2 (11:13→20:25)
--- NOTE | 2022-03-09 18:21 | Hospitalist Progress Note ---
Date of Service March 09, 2022 Assessment & Plan (1) Weakness: (2) Urinary tract infection: (3) ROSA (acute kidney injury): (4) Hypercalcemia: (5) SARS-CoV-2 positive: (6) Dementia: Plan This is an 81 yr old F who has hx of macular degeneration, dementia, HTN, 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 Found to have UTI Ecoli UTI- pansensitive. Will continue keflex D3/7. Right hip pain with abnormal imaging CT right hip shows - 1. A 3.3 x 2.0 x 2.5 cm peripheral enhancing hypodense collection within the soft tissues of the right lateral hip which appears to abut the lateral surface of the proximal femur/greater trochanter. This likely represents an abscess given the surrounding inflammatory change. 2. Mild periprosthetic lucency within the proximal portion of the right femoral intramedullary lelia which is in close proximity to the suspected abscess. Therefore, secondary infection would be the diagnosis of exclusion. - Discussed with ortho who doubts infection. CRP, ESR, WBC, procal negative. Recommended indium scan which can not be done in this hospital - Await formal recommendations from ortho - PT OT eval Generalized Weakness ( 2/2 to recent COVID-19 and UTI)- PT/OT eval pending. Sars Cov 2 +: asymptomatic. Covid positive for more than 2 weeks now. Likely virus and non infectious. Acute on Chronic CKD 3 - likely pre renal in setting of dehydration. resolved. Hypercalcemia- mild, d/t dehydration and HCTZ. HCTZ on hold. Favor IVF given inadequate oral intake but she declines an IV line. Encourage more free water intake. recheck in am. Hypokalemia- resolved. Polycythemia- relative due to dehydration. resolved. 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 Increased confusion from baseline, could be due to her visual issues and UTI. Plan to see ophthalmology as OP per daughter. - continue namenda and seroquel HTN- hold hctz and aldactone. continue metoprolol Hx of Fall and RLE fracture Abnormal hip/pelvis Xray imaging suggestive of loosening around the IM nail of R hip pt had surgery done by Dr. Bradley - seen by ortho- getting CT right hip as unable to work with PT today due to pain. DVT ppx: SQ Heparin q12hr Dispo: pending CT. Pending PT eval. Will likely need placement Updated daughter over the phone Admission and Anticipated Discharge Date Admission Date: March 05, 2022 Subjective states she can not move or stand up due to hip pain, but no pain at rest. She refused iv line and iv antibiotic this morning. No fever, chills, N/V, chest pain, SOB. States she can not see anything Physical Exam Physical Exam: General: Elderly female, lying comfortably in bed, not in distress, on room air Chest: Fair breath sounds bilaterally, no wheezes or crackles CVS: Regular rate and rhythm, normal heart sounds, no murmur Abdomen: Soft, non tender, not distended, normal bowel sounds Neuro: Awake, alert, demented, conversing okay. Moving all extremities independently Extremities: No edema. No tenderness on palpation of bilateral hip. Results & Data Results & Data ([facility]) Vital Signs (Past 12 Hours) Vital Signs Temp Pulse Resp BP Pulse Ox O2 Del Method 03/09/22 08:14 Room Air 03/09/22 08:05 36.8 C 76 16 97/68 L 95 Room Air Laboratory Results Short CBC 03/09/22 Range/Units 07:56 WBC 7.92 (4.8-10.8) K/ul Hgb 14.1 (12.0-16.0) g/dl Hct 42.6 (34.1-44.9) % Plt Count 214 (130-400) K/uL BMP 03/09/22 07:56 Sodium 137 Potassium 4.2 Chloride 107 Carbon Dioxide 23 BUN 18 Creatinine 1.01 Glucose 80 Calcium 10.4 H Medications Administered Current Inpatient Medications Acetaminophen (Acetaminophen 325 Mg Tab) 650 mg PO Q4H PRN PRN Reason: Moderate Pain Stop: 04/05/22 01:06 Cephalexin HCl (Cephalexin 500 Mg Cap) 500 mg PO BID [facility]; Protocol Stop: 04/20/22 09:59 Last Admin: 03/09/22 11:13 Dose: 500 mg Heparin Sodium (Porcine) (Heparin Sod 5,000 Unit/0.5 Ml Vial) 5,000 units SQ Q12 [facility] Stop: 04/05/22 01:06 Last Admin: 03/09/22 07:48 Dose: Not Given Memantine (Memantine Hcl 10 Mg Tab) 10 mg PO BID [facility] Stop: 04/05/22 01:06 Last Admin: 03/09/22 08:01 Dose: 10 mg Metoprolol Succinate (Metoprolol Succ 50mg Ext Rel Tab) 50 mg PO DAILY [facility] Stop: 04/05/22 08:59 Last Admin: 03/09/22 08:06 Dose: Not Given Ondansetron HCl (Ondansetron Inj 2 Mg/Ml 2 Ml Vial) 4 mg IV Q4H PRN PRN Reason: Nausea And Vomiting Stop: 04/05/22 01:06 Quetiapine Fumarate (Quetiapine Fumarate 25 Mg Tablet) 25 mg PO BID [facility] Stop: 04/05/22 01:06 Last Admin: 03/09/22 08:01 Dose: 25 mg (1) Urinary tract infection Hematuria presence: without hematuria Urinary tract infection type: site unspecified Qualified Code(s): N39.0 - Urinary tract infection, site not specified (2) Dementia Dementia behavioral disturbance: without behavioral disturbance Dementia type: unspecified type Qualified Code(s): F03.90 - Unspecified dementia without behavioral disturbance
[2022-03-09] MEDS: ACETAMINOPHEN 325 MG TAB PO SCH (20:26)
[2022-03-09] MEDS: LIDOCAINE 5% 1 PATCH TD SCH (20:26)
[2022-03-10] MEDS: ACETAMINOPHEN 325 MG TAB PO SCH ×4 (00:30→18:36)
[2022-03-10 08:42] LABS: Hematocrit (blood only) 40.8 % (34.1-44.9); Mean Corpuscular Hgb Conc 34.3 g/dL (32.0-36.0); Mean Corpuscular Volume 84.6 fL (80.0-100.0); Mean Platelet Volume 10.3 fL (9.4-12.3); Platelet Count 225 K/uL (130-400); RDW Coefficient of Variation 13.2 % (11.5-14.5); RDW Standard Deviation 41.1 fL (36.4-46.3); Red Blood Count 4.82 M/uL (3.93-5.22); White Blood Count 7.48 K/ul (4.8-10.8)
[2022-03-10 09:00] LABS: BUN Creatinine Ratio 20.2 (10-20); Calcium 10.4 mg/dl (8.5-10.1); Creatinine Clr Calc Pharmacy 43.1 ml/min; Est GFR (African American) 69.5 ml/min; Est GFR (Non-African American) 59.9 ml/min; Potassium 4.2 mmol/L (3.5-5.1)
[2022-03-10] MEDS: cephALEXin 500 MG CAP PO SCH ×2 (10:12→21:55)
[2022-03-10] MEDS: LIDOCAINE 5% 1 PATCH TD SCH (10:12)
[2022-03-10] MEDS: MEMANTINE HCL 10 MG TAB PO SCH ×2 (10:12→21:56)
[2022-03-10] MEDS: METOPROLOL SUCC 50MG EXT REL TAB PO SCH (10:12)
[2022-03-10] MEDS: QUEtiapine FUMARATE 25 MG TABLET PO SCH ×2 (10:12→21:56)
[2022-03-10] MEDS: HEPARIN SOD 5,000 UNIT/0.5 ML VIAL SQ SCH ×2 (10:12→21:56)
--- NOTE | 2022-03-10 13:35 | Hospitalist Progress Note ---
Date of Service March 10, 2022 Assessment & Plan (1) Weakness: (2) Urinary tract infection: (3) ROSA (acute kidney injury): (4) Hypercalcemia: (5) SARS-CoV-2 positive: (6) Dementia: Plan This is an 81 yr old F who has hx of macular degeneration, dementia, HTN, 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 Found to have UTI Ecoli UTI- pansensitive. Will continue keflex D4/7. Right hip pain with abnormal imaging CT right hip shows - 1. A 3.3 x 2.0 x 2.5 cm peripheral enhancing hypodense collection within the soft tissues of the right lateral hip which appears to abut the lateral surface of the proximal femur/greater trochanter. This likely represents an abscess given the surrounding inflammatory change. 2. Mild periprosthetic lucency within the proximal portion of the right femoral intramedullary lelia which is in close proximity to the suspected abscess. Therefore, secondary infection would be the diagnosis of exclusion. - Discussed with ortho who doubts infection. CRP, ESR, WBC, procal negative. Recommended indium scan which can not be done in this hospital - Per orthopedics likely not infectious, will need to obtain an Indium 111 scan as outpatient to determine fluid collection - Ortho feels MRI likely not helpful due to artifact from hardware - Generalized Weakness ( 2/2 to recent COVID-19 and UTI)- PT/OT eval pending. Sars Cov 2 +: asymptomatic. Covid positive for more than 2 weeks now. Likely virus and non infectious. Tested positive on home test over 2 weeks ago Acute on Chronic CKD 3 - likely pre renal in setting of dehydration. resolved. Cr 0.89 Hypercalcemia- mild, d/t dehydration and HCTZ. HCTZ on hold. Favor IVF given inadequate oral intake but she declines an IV line. Encourage more free water intake. recheck in am. Hypokalemia- resolved. Polycythemia- relative due to dehydration. resolved. 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 Increased confusion from baseline, could be due to her visual issues and UTI. Plan to see ophthalmology as OP per daughter. - continue namenda and seroquel HTN- hold hctz and aldactone. continue metoprolol DVT ppx: SQ Heparin q12hr Dispo: will need placement, pt refuses most care and activity per nursing staff, discussed with JAYCE Villela. Admission and Anticipated Discharge Date Admission Date: March 05, 2022 Supervising Physician Co-Signing Physician Notes Patient was seen and examined independently at bedside. Chart reviewed. Case discussed with Maral BAUM and agree with the documentation above. In summary, this is a 81 year old demented lady who is being treated with keflex for pansensitive UTI. Doubt active COVID infection. Has abnormal right hip imaging which per ortho may not be infectious as inflammatory markers negative, afeb rile, WBC normal. Plan for OP indium scan. Agree with PT/OT eval and will likely need placement. Rest as per the note above. Subjective Pt was seen and examined in room 358-1. Follow up R hip pain, post covid, weakness. She states she was at [employer] last week. She denies any pain at rest. She is stating she is hungry and requesting a meal. She denies cp, sob, f/c/s, n/v/d. ROS slightly unreliable given underlying dementia. Review of Systems Review of Systems: All systems reviewed & are unremarkable except as noted in HPI & below Physical Exam Physical Exam: Gen: Thin, petite, elderly F, NAD, A&O x3 HEENT: Normocephalic, atraumatic, conjunctivae moist, sclerae anicteric, mucous membranes moist. Lung: Clear to Auscultation bilaterally, no wheezes/rales/rhonchi Heart: Regular rate, regular rhythm, no murmurs, rubs, or gallops Abdomen: Soft, NT, ND +BS x 4 Extremities: No edema Skin: Warm, no rash, negative turgor. Results & Data Results & Data ([facility]) Vital Signs (Past 12 Hours) Vital Signs Temp Pulse Resp BP Pulse Ox O2 Del Method 03/10/22 10:09 36.6 C 62 14 121/69 98 Room Air 03/10/22 02:07 Room Air Laboratory Results Short CBC 03/10/22 Range/Units 08:26 WBC 7.48 (4.8-10.8) K/ul Hgb 14.0 (12.0-16.0) g/dl Hct 40.8 (34.1-44.9) % Plt Count 225 (130-400) K/uL BMP 03/10/22 08:26 Sodium 138 Potassium 4.2 Chloride 107 Carbon Dioxide 27 BUN 18 Creatinine 0.89 Glucose 83 Calcium 10.4 H Medications Administered Current Inpatient Medications Acetaminophen (Acetaminophen 325 Mg Tab) 650 mg PO Q6H [facility] Stop: 04/08/22 18:29 Last Admin: 03/10/22 13:01 Dose: Not Given Cephalexin HCl (Cephalexin 500 Mg Cap) 500 mg PO BID [facility]; Protocol Stop: 04/20/22 09:59 Last Admin: 03/10/22 10:12 Dose: 500 mg Heparin Sodium (Porcine) (Heparin Sod 5,000 Unit/0.5 Ml Vial) 5,000 units SQ Q12 [facility] Stop: 04/05/22 01:06 Last Admin: 03/10/22 10:12 Dose: Not Given Lidocaine (Lidocaine 5% 1 Patch) 1 patch TD QAM [facility] Stop: 04/08/22 18:29 Last Admin: 03/10/22 10:12 Dose: Not Given Memantine (Memantine Hcl 10 Mg Tab) 10 mg PO BID [facility] Stop: 04/05/22 01:06 Last Admin: 03/10/22 10:12 Dose: 10 mg Metoprolol Succinate (Metoprolol Succ 50mg Ext Rel Tab) 50 mg PO DAILY [facility] Stop: 04/05/22 08:59 Last Admin: 03/10/22 10:12 Dose: 50 mg Miscellaneous (Remove Lidoderm Patch) 1 each N/A DAILY@2100 [facility] Stop: 04/08/22 20:59 Last Admin: 03/09/22 20:27 Dose: Not Given Ondansetron HCl (Ondansetron Inj 2 Mg/Ml 2 Ml Vial) 4 mg IV Q4H PRN PRN Reason: Nausea And Vomiting Stop: 04/05/22 01:06 Quetiapine Fumarate (Quetiapine Fumarate 25 Mg Tablet) 25 mg PO BID [facility] Stop: 04/05/22 01:06 Last Admin: 03/10/22 10:12 Dose: 25 mg (1) Urinary tract infection Hematuria presence: without hematuria Urinary tract infection type: site unspecified Qualified Code(s): N39.0 - Urinary tract infection, site not specified (2) Dementia Dementia behavioral disturbance: without behavioral disturbance Dementia type: unspecified type Qualified Code(s): F03.90 - Unspecified dementia without behavioral disturbance
[2022-03-11] MEDS: ACETAMINOPHEN 325 MG TAB PO SCH ×4 (00:52→17:54)
[2022-03-11] MEDS: HEPARIN SOD 5,000 UNIT/0.5 ML VIAL SQ SCH ×2 (08:51→21:08)
[2022-03-11] MEDS: LIDOCAINE 5% 1 PATCH TD SCH (08:51)
[2022-03-11] MEDS: METOPROLOL SUCC 50MG EXT REL TAB PO SCH (09:30)
[2022-03-11] MEDS: cephALEXin 500 MG CAP PO SCH ×2 (10:07→21:10)
[2022-03-11] MEDS: MEMANTINE HCL 10 MG TAB PO SCH ×2 (10:07→21:09)
[2022-03-11] MEDS: QUEtiapine FUMARATE 25 MG TABLET PO SCH ×2 (10:07→21:09)
[2022-03-11 10:25] LABS: BUN Creatinine Ratio 20.8 (10-20); Calcium 10.4 mg/dl (8.5-10.1); Est GFR (African American) 63.4 ml/min; Est GFR (Non-African American) 54.7 ml/min; Potassium 3.7 mmol/L (3.5-5.1)
--- NOTE | 2022-03-11 13:02 | Hospitalist Progress Note ---
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 Found to have UTI Ecoli UTI- pansensitive. Will continue keflex D4/7. Right hip pain with abnormal imaging CT right hip shows - 1. A 3.3 x 2.0 x 2.5 cm peripheral enhancing hypodense collection within the soft tissues of the right lateral hip which appears to abut the lateral surface of the proximal femur/greater trochanter. This likely represents an abscess given the surrounding inflammatory change. 2. Mild periprosthetic lucency within the proximal portion of the right femoral intramedullary lelia which is in close proximity to the suspected abscess. Therefore, secondary infection would be the diagnosis of exclusion. - Discussed with ortho who doubts infection. CRP, ESR, WBC, procal negative. Recommended indium scan which can not be done in this hospital - Per orthopedics likely not infectious, will need to obtain an Indium 111 scan as outpatient to determine fluid collection - Ortho feels MRI likely not helpful due to artifact from hardware Generalized Weakness ( 2/2 to recent COVID-19 and UTI)- PT/OT eval pending. Sars Cov 2 +: asymptomatic. Covid positive for more than 2 weeks now. Likely virus and non infectious. Tested positive on home test over 2 weeks ago Acute on Chronic CKD 3 - likely pre renal in setting of dehydration. resolved. Cr 0.89 Hypercalcemia- mild, d/t dehydration and HCTZ. HCTZ on hold. Favor IVF given inadequate oral intake but she declines an IV line. Encourage more free water intake. Ca remains mildly elevated, PTH checked and elevated 91.3. Concern for possible primary hyperparathyroidism. Possible Primary hyperparathyroidism Elevated serum ca, PTH, corrected ca > 11, possibly contributing to worsened dementia discussed with Endo Dr. Ponce given age, dementia not surgical candidate - recommends starting cinacalcet 30mg once daily Monitor calcium corrected albumin once a week until stable calcium in the 9-9.5 range Once a stable dose of cinacalcet is determined and pt maintains 9-9.5 corrected calcium can then check every 1-2 months obtain vitamin D level in a.m. Hypokalemia- resolved. Polycythemia- relative due to dehydration. resolved. 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 Increased confusion from baseline, could be due to her visual issues and UTI. Plan to see ophthalmology as OP per daughter. - continue namenda and seroquel HTN- hold hctz and aldactone. continue metoprolol DVT ppx: SQ Heparin q12hr Dispo: will need placement, pt currentlly isolated due to covid, will repeat sars cov2 today, hx of infection 2.5 weeks ago, asymptomatic, but was an at home antigen test, awaiting placement Admission and Anticipated Discharge Date Admission Date: March 05, 2022 Supervising Physician Co-Signing Physician Notes Patient was seen and examined independently at bedside. Chart reviewed. Case discussed with Maral BAUM and agree with the documentation above. In summary, this is a 81 year old demented lady who is being treated with keflex for pansensitive UTI. Doubt active COVID infection but persistently tested positive. Has abnormal right hip imaging which per ortho may not be infectious as inflammatory markers negative, afebrile, WBC normal. Plan for OP indium scan. Also found to have PTH associated hypercalcemia- continue sensipar per endo recommendation and OP follow up. Will need placement but not available until next week per CM. Rest as per the note above. Subjective Pt was seen and examined in room 358-1. Follow up R hip pain, post covid, weakness. She denies any hip pain at current time. She is requesting food. Denies cp, sob, f/c/s, dizziness, lightheaded. Per nursing BP has been running on lower side so metoprolol has been held. She has been allowing aides to ambulate her to and from bathroom. When encouraged she does drink fluids. Review of Systems Review of Systems: All systems reviewed & are unremarkable except as noted in HPI & below Physical Exam Physical Exam: Gen: Thin, petite, elderly F, NAD, A&O x3, lying in bed HEENT: Normocephalic, atraumatic, conjunctivae moist, sclerae anicteric, mucous membranes moist. Lung: Clear to Auscultation bilaterally, no wheezes/rales/rhonchi Heart: Regular rate, regular rhythm, no murmurs, rubs, or gallops Abdomen: Soft, NT, ND +BS x 4 Extremities: No edema Skin: Warm, no rash, negative turgor. Results & Data Results & Data ([facility]) Vital Signs (Past 12 Hours) Vital Signs Temp Pulse Resp BP BP Pulse Ox O2 Del Method 03/11/22 10:12 94/60 L 03/11/22 09:23 72 14 87/52 L 84/50 L 97 Room Air 03/11/22 05:54 36.7 C 66 18 113/63 96 Room Air Laboratory Results [facility] 03/11/22 09:25 Sodium 138 Potassium 3.7 Chloride 107 Carbon Dioxide 24 BUN 20 Creatinine 0.96 Glucose 106 H Calcium 10.4 H Medications Administered Current Inpatient Medications Acetaminophen (Acetaminophen 325 Mg Tab) 650 mg PO Q6H [facility] Stop: 04/08/22 18:29 Last Admin: 03/11/22 12:48 Dose: Not Given Cephalexin HCl (Cephalexin 500 Mg Cap) 500 mg PO BID [facility]; Protocol Stop: 03/12/22 22:01 Last Admin: 03/11/22 10:07 Dose: 500 mg Heparin Sodium (Porcine) (Heparin Sod 5,000 Unit/0.5 Ml Vial) 5,000 units SQ Q12 [facility] Stop: 04/05/22 01:06 Last Admin: 03/11/22 08:51 Dose: Not Given Lidocaine (Lidocaine 5% 1 Patch) 1 patch TD QAM [facility] Stop: 04/08/22 18:29 Last Admin: 03/11/22 08:51 Dose: Not Given Memantine (Memantine Hcl 10 Mg Tab) 10 mg PO BID [facility] Stop: 04/05/22 01:06 Last Admin: 03/11/22 10:07 Dose: 10 mg Metoprolol Succinate (Metoprolol Succ 50mg Ext Rel Tab) 50 mg PO DAILY [facility] Stop: 04/05/22 08:59 Last Admin: 03/11/22 09:30 Dose: Not Given Miscellaneous (Remove Lidoderm Patch) 1 each N/A DAILY@2100 [facility] Stop: 04/08/22 20:59 Last Admin: 03/10/22 21:55 Dose: Not Given Ondansetron HCl (Ondansetron Inj 2 Mg/Ml 2 Ml Vial) 4 mg IV Q4H PRN PRN Reason: Nausea And Vomiting Stop: 04/05/22 01:06 Quetiapine Fumarate (Quetiapine Fumarate 25 Mg Tablet) 25 mg PO BID [facility] Stop: 04/05/22 01:06 Last Admin: 03/11/22 10:07 Dose: 25 mg (1) Urinary tract infection Hematuria presence: without hematuria Urinary tract infection type: site unspecified Qualified Code(s): N39.0 - Urinary tract infection, site not specified (2) Dementia Dementia behavioral disturbance: without behavioral disturbance Dementia type: unspecified type Qualified Code(s): F03.90 - Unspecified dementia without behavioral disturbance
[2022-03-11] MEDS: CINACALCET HCL 30 MG TAB PO SCH (14:53)
[2022-03-12] MEDS: ACETAMINOPHEN 325 MG TAB PO SCH ×4 (00:30→17:45)
[2022-03-12] MEDS: CINACALCET HCL 30 MG TAB PO SCH (10:03)
[2022-03-12] MEDS: cephALEXin 500 MG CAP PO SCH ×2 (10:03→22:19)
[2022-03-12] MEDS: HEPARIN SOD 5,000 UNIT/0.5 ML VIAL SQ SCH ×2 (10:04→22:18)
[2022-03-12] MEDS: LIDOCAINE 5% 1 PATCH TD SCH (10:04)
[2022-03-12] MEDS: MEMANTINE HCL 10 MG TAB PO SCH ×2 (10:04→22:19)
[2022-03-12] MEDS: METOPROLOL SUCC 50MG EXT REL TAB PO SCH (10:05)
[2022-03-12] MEDS: QUEtiapine FUMARATE 25 MG TABLET PO SCH ×2 (10:05→22:19)
--- NOTE | 2022-03-12 13:36 | Hospitalist Progress Note ---
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 Found to have UTI Ecoli UTI- pansensitive. Will continue keflex D5/7. Right hip pain with abnormal imaging CT right hip shows - 1. A 3.3 x 2.0 x 2.5 cm peripheral enhancing hypodense collection within the soft tissues of the right lateral hip which appears to abut the lateral surface of the proximal femur/greater trochanter. This likely represents an abscess given the surrounding inflammatory change. 2. Mild periprosthetic lucency within the proximal portion of the right femoral intramedullary lelia which is in close proximity to the suspected abscess. Therefore, secondary infection would be the diagnosis of exclusion. - Discussed with ortho who doubts infection. CRP, ESR, WBC, procal negative. Recommended indium scan which can not be done in this hospital - Per orthopedics likely not infectious, will need to obtain an Indium 111 scan as outpatient to determine fluid collection - Ortho feels MRI likely not helpful due to artifact from hardware Generalized Weakness ( 2/2 to recent COVID-19 and UTI)- PT/OT eval pending. Sars Cov 2 +: asymptomatic. Covid positive for more than 2 weeks now. Likely virus and non infectious. Tested positive on home test over 2 weeks ago Acute on Chronic CKD 3 - likely pre renal in setting of dehydration. resolved. Cr 0.89 PTH mediated hypercalcemia, suspected primary hyperparathyroidism - PTH 91.3. Ca 10.4 but when corrected for albumin, Ca > 11, possibly contributing to worsened dementia - Discussed with Endo Dr. Ponce - given age, dementia not surgical candidate - recommends starting cinacalcet 30mg once daily - Monitor calcium corrected albumin once a week until stable calcium in the 9- 9.5 range - Once a stable dose of cinacalcet is determined and pt maintains 9-9.5 corrected calcium can then check every 1-2 months Hypokalemia- resolved. Polycythemia- relative due to dehydration. resolved. 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 Increased confusion from baseline, could be due to her visual issues and UTI. Plan to see ophthalmology as OP per daughter. - continue namenda and seroquel HTN- hold hctz and aldactone. continue metoprolol DVT ppx: SQ Heparin Dispo: will need placement, Awaiting placement. Medically stable for discharge. Admission and Anticipated Discharge Date Admission Date: March 05, 2022 Subjective Feels fine. States she is hungry and would like to eat. No pain. No fever or chills. Physical Exam Physical Exam: General: Elderly female, lying comfortably in bed, not in distress, on room air Chest: Fair breath sounds bilaterally, no wheezes or crackles CVS: Regular rate and rhythm, normal heart sounds, no murmur Abdomen: Soft, non tender, not distended, normal bowel sounds Neuro: Awake, alert, demented, conversing okay. Moving all extremities independently Extremities: No edema. No tenderness on palpation of bilateral hip. Results & Data Results & Data ([facility]) Vital Signs (Past 12 Hours) Vital Signs Temp Pulse Resp BP Pulse Ox O2 Del Method 03/12/22 10:03 Room Air 03/12/22 09:07 36.6 C 72 16 100/68 95 Room Air 03/12/22 06:03 36.5 C 67 18 113/72 96 Room Air Medications Administered Current Inpatient Medications Acetaminophen (Acetaminophen 325 Mg Tab) 650 mg PO Q6H [facility] Stop: 04/08/22 18:29 Last Admin: 03/12/22 13:06 Dose: Not Given Cephalexin HCl (Cephalexin 500 Mg Cap) 500 mg PO BID [facility]; Protocol Stop: 03/12/22 22:01 Last Admin: 03/12/22 10:03 Dose: 500 mg Cinacalcet (Cinacalcet Hcl 30 Mg Tab) 30 mg PO DAILY [facility] Stop: 04/10/22 13:44 Last Admin: 03/12/22 10:03 Dose: 30 mg Heparin Sodium (Porcine) (Heparin Sod 5,000 Unit/0.5 Ml Vial) 5,000 units SQ Q12 [facility] Stop: 04/05/22 01:06 Last Admin: 03/12/22 10:04 Dose: Not Given Lidocaine (Lidocaine 5% 1 Patch) 1 patch TD QAM [facility] Stop: 04/08/22 18:29 Last Admin: 03/12/22 10:04 Dose: Not Given Memantine (Memantine Hcl 10 Mg Tab) 10 mg PO BID [facility] Stop: 04/05/22 01:06 Last Admin: 03/12/22 10:04 Dose: 10 mg Metoprolol Succinate (Metoprolol Succ 50mg Ext Rel Tab) 50 mg PO DAILY [facility] Stop: 04/05/22 08:59 Last Admin: 03/12/22 10:05 Dose: 50 mg Miscellaneous (Remove Lidoderm Patch) 1 each N/A DAILY@2100 [facility] Stop: 04/08/22 20:59 Last Admin: 03/11/22 21:09 Dose: Not Given Ondansetron HCl (Ondansetron Inj 2 Mg/Ml 2 Ml Vial) 4 mg IV Q4H PRN PRN Reason: Nausea And Vomiting Stop: 04/05/22 01:06 Quetiapine Fumarate (Quetiapine Fumarate 25 Mg Tablet) 25 mg PO BID [facility] Stop: 04/05/22 01:06 Last Admin: 03/12/22 10:05 Dose: 25 mg (1) Urinary tract infection Hematuria presence: without hematuria Urinary tract infection type: site unspecified Qualified Code(s): N39.0 - Urinary tract infection, site not specified (2) Dementia Dementia behavioral disturbance: without behavioral disturbance Dementia type: unspecified type Qualified Code(s): F03.90 - Unspecified dementia without behavioral disturbance
[2022-03-13] MEDS: ACETAMINOPHEN 325 MG TAB PO SCH ×5 (01:25→23:08)
[2022-03-13] MEDS ORDERED: ERGOCALCIFEROL 50,000 UNITS 1250 MCG CAP PO SCH (08:15)
[2022-03-13 08:54] LABS: Albumin Globulin Ratio 1.1 (0.9-2); Albumin Level 3.2 gm/dl (3.4-5.0); Bilirubin,Total 0.4 mg/dl (0.2-1.0); Calcium 9.5 mg/dl (8.5-10.1); Est GFR (African American) 63.4 ml/min; Est GFR (Non-African American) 54.7 ml/min; Potassium 4.1 mmol/L (3.5-5.1); Total Protein 6.2 gm/dl (6.0-8.3)
[2022-03-13] MEDS: LIDOCAINE 5% 1 PATCH TD SCH (09:21)
[2022-03-13] MEDS: CINACALCET HCL 30 MG TAB PO SCH (09:21)
[2022-03-13] MEDS: HEPARIN SOD 5,000 UNIT/0.5 ML VIAL SQ SCH ×2 (09:21→22:38)
[2022-03-13] MEDS: METOPROLOL SUCC 50MG EXT REL TAB PO SCH (09:22)
[2022-03-13] MEDS: QUEtiapine FUMARATE 25 MG TABLET PO SCH ×2 (09:22→23:01)
[2022-03-13] MEDS: MEMANTINE HCL 10 MG TAB PO SCH ×2 (09:22→23:01)
--- NOTE | 2022-03-13 13:09 | Hospitalist Progress Note ---
Date of Service March 13, 2022 Assessment & Plan (1) Weakness: (2) Urinary tract infection: (3) ROSA (acute kidney injury): (4) Hypercalcemia: (5) SARS-CoV-2 positive: (6) Dementia: Plan This is an 81 yr old F who has hx of macular degeneration, dementia, HTN, 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 Found to have UTI Ecoli UTI- pansensitive. S/p 7 days of keflex Right hip pain with abnormal imaging CT right hip shows - 1. A 3.3 x 2.0 x 2.5 cm peripheral enhancing hypodense collection within the soft tissues of the right lateral hip which appears to abut the lateral surface of the proximal femur/greater trochanter. This likely represents an abscess given the surrounding inflammatory change. 2. Mild periprosthetic lucency within the proximal portion of the right femoral intramedullary lelia which is in close proximity to the suspected abscess. Therefore, secondary infection would be the diagnosis of exclusion. - Discussed with ortho who doubts infection. CRP, ESR, WBC, procal negative. Recommended indium scan which can not be done in this hospital - Per orthopedics likely not infectious, will need to obtain an Indium 111 scan as outpatient to determine fluid collection - Ortho feels MRI likely not helpful due to artifact from hardware Generalized Weakness ( 2/2 to recent COVID-19 and UTI)- PT/OT recommended rehab. Sars Cov 2 +: asymptomatic. Covid positive for more than 2 weeks now. Likely virus and non infectious. Tested positive on home test over 2 weeks ago Acute on Chronic CKD 3 - likely pre renal in setting of dehydration. resolved. Cr 0.89 PTH mediated hypercalcemia, suspected primary hyperparathyroidism - PTH 91.3. Ca 10.4 but when corrected for albumin, Ca > 11, possibly contributing to worsened dementia - Discussed with Endo Dr. Ponce - given age, dementia not surgical candidate - recommends starting cinacalcet 30mg once daily - Monitor calcium corrected albumin once a week until stable calcium in the 9- 9.5 range - Once a stable dose of cinacalcet is determined and pt maintains 9-9.5 corrected calcium can then check every 1-2 months - Hypercalcemia resolved with current dose of cinacalcet, continue Vit D deficiency- started on Vit D supplementation Hypokalemia- resolved. Polycythemia- relative due to dehydration. resolved. 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 Increased confusion from baseline, could be due to her visual issues and UTI. Plan to see ophthalmology as OP per daughter. - continue namenda and seroquel HTN- hold hctz and aldactone. continue metoprolol DVT ppx: SQ Heparin Dispo: will need placement, has a bed on Wednesday. Medically stable for discharge. Admission and Anticipated Discharge Date Admission Date: March 05, 2022 Subjective She feels fine, denies any pain. She is hungry and awaiting to be fed. She was fed without issues. No other issues. Physical Exam Physical Exam: General: Elderly female, lying comfortably in bed, not in distress, on room air Chest: Fair breath sounds bilaterally, no wheezes or crackles CVS: Regular rate and rhythm, normal heart sounds, no murmur Abdomen: Soft, non tender, not distended, normal bowel sounds Neuro: Awake, alert, demented, conversing okay. Moving all extremities independently Extremities: No edema. No tenderness on palpation of bilateral hip. Results & Data Results & Data ([facility]) Vital Signs (Past 12 Hours) Vital Signs Temp Pulse Resp BP Pulse Ox O2 Del Method 03/13/22 09:15 Room Air 03/13/22 09:07 36.4 C L 66 16 92/57 L 95 Room Air Laboratory Results [facility] 03/13/22 08:03 Sodium 138 Potassium 4.1 Chloride 106 Carbon Dioxide 27 BUN 25 H Creatinine 0.96 Glucose 70 Calcium 9.5 Liver Function 03/13/22 Range/Units 08:03 Total Bilirubin 0.4 (0.2-1.0) mg/dl AST 21 (13-39) U/L ALT 22 (7-52) U/L Alkaline Phosphatase 54 (34-104) U/L Albumin 3.2 L (3.4-5.0) gm/dl Medications Administered Current Inpatient Medications Acetaminophen (Acetaminophen 325 Mg Tab) 650 mg PO Q6H [facility] Stop: 04/08/22 18:29 Last Admin: 03/13/22 12:46 Dose: Not Given Cinacalcet (Cinacalcet Hcl 30 Mg Tab) 30 mg PO DAILY [facility] Stop: 04/10/22 13:44 Last Admin: 03/13/22 09:21 Dose: 30 mg Ergocalciferol (Ergocalciferol 50,000 Units 1250 Mcg Cap) 50,000 units PO Q7D@0900 [facility] Stop: 04/12/22 08:14 Last Admin: 03/13/22 09:21 Dose: 50,000 units Heparin Sodium (Porcine) (Heparin Sod 5,000 Unit/0.5 Ml Vial) 5,000 units SQ Q12 [facility] Stop: 04/05/22 01:06 Last Admin: 03/13/22 09:21 Dose: Not Given Lidocaine (Lidocaine 5% 1 Patch) 1 patch TD QAM [facility] Stop: 04/08/22 18:29 Last Admin: 03/13/22 09:21 Dose: Not Given Memantine (Memantine Hcl 10 Mg Tab) 10 mg PO BID [facility] Stop: 04/05/22 01:06 Last Admin: 03/13/22 09:22 Dose: 10 mg Metoprolol Succinate (Metoprolol Succ 50mg Ext Rel Tab) 50 mg PO DAILY [facility] Stop: 04/05/22 08:59 Last Admin: 03/13/22 09:22 Dose: Not Given Miscellaneous (Remove Lidoderm Patch) 1 each N/A DAILY@2100 [facility] Stop: 04/08/22 20:59 Last Admin: 03/12/22 22:18 Dose: Not Given Ondansetron HCl (Ondansetron Inj 2 Mg/Ml 2 Ml Vial) 4 mg IV Q4H PRN PRN Reason: Nausea And Vomiting Stop: 04/05/22 01:06 Quetiapine Fumarate (Quetiapine Fumarate 25 Mg Tablet) 25 mg PO BID [facility] Stop: 04/05/22 01:06 Last Admin: 03/13/22 09:22 Dose: 25 mg (1) Urinary tract infection Hematuria presence: without hematuria Urinary tract infection type: site unspecified Qualified Code(s): N39.0 - Urinary tract infection, site not specified (2) Dementia Dementia behavioral disturbance: without behavioral disturbance Dementia type: unspecified type Qualified Code(s): F03.90 - Unspecified dementia without behavioral disturbance
[2022-03-14] MEDS: ACETAMINOPHEN 325 MG TAB PO SCH ×3 (05:30→18:04)
[2022-03-14] MEDS: LIDOCAINE 5% 1 PATCH TD SCH (08:33)
[2022-03-14] MEDS: MEMANTINE HCL 10 MG TAB PO SCH ×2 (08:33→23:18)
[2022-03-14] MEDS: HEPARIN SOD 5,000 UNIT/0.5 ML VIAL SQ SCH ×2 (08:34→23:18)
[2022-03-14] MEDS: QUEtiapine FUMARATE 25 MG TABLET PO SCH ×2 (08:34→23:19)
[2022-03-14] MEDS: METOPROLOL SUCC 50MG EXT REL TAB PO SCH (08:34)
[2022-03-14] MEDS: CINACALCET HCL 30 MG TAB PO SCH (08:34)
--- NOTE | 2022-03-14 09:56 | Hospitalist Progress Note ---
Date of Service March 14, 2022 Assessment & Plan (1) Weakness: (2) Urinary tract infection: (3) ROSA (acute kidney injury): (4) Hypercalcemia: (5) SARS-CoV-2 positive: (6) Dementia: Plan This is an 81 yr old F who has hx of macular degeneration, dementia, HTN, 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 Found to have UTI Ecoli UTI- pansensitive. S/p 7 days of keflex Right hip pain with abnormal imaging CT right hip shows - 1. A 3.3 x 2.0 x 2.5 cm peripheral enhancing hypodense collection within the soft tissues of the right lateral hip which appears to abut the lateral surface of the proximal femur/greater trochanter. This likely represents an abscess given the surrounding inflammatory change. 2. Mild periprosthetic lucency within the proximal portion of the right femoral intramedullary lelia which is in close proximity to the suspected abscess. Therefore, secondary infection would be the diagnosis of exclusion. - Discussed with ortho who doubts infection. CRP, ESR, WBC, procal negative. Recommended indium scan which can not be done in this hospital - Per orthopedics likely not infectious, will need to obtain an Indium 111 scan as outpatient to determine fluid collection - Ortho feels MRI likely not helpful due to artifact from hardware Generalized Weakness ( 2/2 to recent COVID-19 and UTI)- PT/OT recommended rehab. Sars Cov 2 +: asymptomatic. Covid positive for more than 2 weeks now. Likely virus and non infectious. Tested positive on home test over 2 weeks ago Acute on Chronic CKD 3 - likely pre renal in setting of dehydration. resolved. Cr 0.89 PTH mediated hypercalcemia, suspected primary hyperparathyroidism - PTH 91.3. Ca 10.4 but when corrected for albumin, Ca > 11, possibly contributing to worsened dementia - Discussed with Endo Dr. Ponce - given age, dementia not surgical candidate - recommends starting cinacalcet 30mg once daily - Monitor calcium corrected albumin once a week until stable calcium in the 9- 9.5 range - Once a stable dose of cinacalcet is determined and pt maintains 9-9.5 corrected calcium can then check every 1-2 months - Hypercalcemia resolved with current dose of cinacalcet, continue Vit D deficiency- started on Vit D supplementation Hypokalemia- resolved. Polycythemia- relative due to dehydration. resolved. 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 Increased confusion from baseline, could be due to her visual issues and UTI. Plan to see ophthalmology as OP per daughter. - continue namenda and seroquel HTN- hold hctz and aldactone. continue metoprolol DVT ppx: SQ Heparin Dispo: will need placement, has a bed on Wednesday. Medically stable for discharge. Admission and Anticipated Discharge Date Admission Date: March 05, 2022 Subjective No new issues. Feels fine. States she is little hungry and waiting for breakfast. No pain. No CP, SOB, N/V. Physical Exam Physical Exam: General: Elderly female, lying comfortably in bed, not in distress, on room air Chest: Fair breath sounds bilaterally, no wheezes or crackles CVS: Regular rate and rhythm, normal heart sounds, no murmur Abdomen: Soft, non tender, not distended, normal bowel sounds Neuro: Awake, alert, demented, conversing okay. Moving all extremities independently Extremities: No edema. No tenderness on palpation of bilateral hip. Results & Data Results & Data ([facility]) Vital Signs (Past 12 Hours) Vital Signs Temp Pulse Resp BP Pulse Ox O2 Del Method 03/14/22 08:47 Room Air 03/14/22 08:00 36.5 C 57 L 14 111/70 97 Room Air (1) Urinary tract infection Hematuria presence: without hematuria Urinary tract infection type: site unspecified Qualified Code(s): N39.0 - Urinary tract infection, site not specified (2) Dementia Dementia behavioral disturbance: without behavioral disturbance Dementia type: unspecified type Qualified Code(s): F03.90 - Unspecified dementia without behavioral disturbance
[2022-03-15] MEDS: ACETAMINOPHEN 325 MG TAB PO SCH ×4 (06:39→18:01)
[2022-03-15] MEDS: LIDOCAINE 5% 1 PATCH TD SCH (08:37)
[2022-03-15] MEDS: CINACALCET HCL 30 MG TAB PO SCH (08:37)
[2022-03-15] MEDS: HEPARIN SOD 5,000 UNIT/0.5 ML VIAL SQ SCH ×2 (08:38→21:29)
[2022-03-15] MEDS: METOPROLOL SUCC 50MG EXT REL TAB PO SCH (08:38)
[2022-03-15] MEDS: MEMANTINE HCL 10 MG TAB PO SCH ×2 (08:38→21:30)
[2022-03-15] MEDS: QUEtiapine FUMARATE 25 MG TABLET PO SCH ×2 (08:38→21:30)
--- NOTE | 2022-03-15 11:20 | Hospitalist Progress Note ---
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 Found to have UTI Ecoli UTI- pansensitive. S/p 7 days of keflex Right hip pain with abnormal imaging CT right hip shows - 1. A 3.3 x 2.0 x 2.5 cm peripheral enhancing hypodense collection within the soft tissues of the right lateral hip which appears to abut the lateral surface of the proximal femur/greater trochanter. This likely represents an abscess given the surrounding inflammatory change. 2. Mild periprosthetic lucency within the proximal portion of the right femoral intramedullary lelia which is in close proximity to the suspected abscess. Therefore, secondary infection would be the diagnosis of exclusion. - Discussed with ortho who doubts infection. CRP, ESR, WBC, procal negative. Recommended indium scan which can not be done in this hospital - Per orthopedics likely not infectious, will need to obtain an Indium 111 scan as outpatient to determine fluid collection - Ortho feels MRI likely not helpful due to artifact from hardware Generalized Weakness ( 2/2 to recent COVID-19 and UTI)- PT/OT recommended rehab. Sars Cov 2 +: asymptomatic. Covid positive for more than 2 weeks now. Likely virus and non infectious. Tested positive on home test over 2 weeks ago Acute on Chronic CKD 3 - likely pre renal in setting of dehydration. resolved. Cr 0.89 PTH mediated hypercalcemia, suspected primary hyperparathyroidism - PTH 91.3. Ca 10.4 but when corrected for albumin, Ca > 11, possibly contributing to worsened dementia - Discussed with Endo Dr. Ponce - given age, dementia not surgical candidate - recommends starting cinacalcet 30mg once daily - Monitor calcium corrected albumin once a week until stable calcium in the 9- 9.5 range - Once a stable dose of cinacalcet is determined and pt maintains 9-9.5 corrected calcium can then check every 1-2 months - Hypercalcemia resolved with current dose of cinacalcet, continue Vit D deficiency- started on Vit D supplementation Hypokalemia- resolved. Polycythemia- relative due to dehydration. resolved. 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 Increased confusion from baseline, could be due to her visual issues and UTI. Plan to see ophthalmology as OP per daughter. - continue namenda and seroquel HTN- hold hctz and aldactone. continue metoprolol DVT ppx: SQ Heparin Dispo: will need placement, has a bed on Wednesday. Medically stable for discharge. Admission and Anticipated Discharge Date Admission Date: March 05, 2022 Subjective Feels fine. States she is getting hungry and would like vanilla icecream. Denies any pain. no fever, CP, SOB, N/V. Physical Exam Physical Exam: General: Elderly female, lying comfortably in bed, not in distress, on room air Chest: Fair breath sounds bilaterally, no wheezes or crackles CVS: Regular rate and rhythm, normal heart sounds, no murmur Abdomen: Soft, non tender, not distended, normal bowel sounds Neuro: Awake, alert, demented, conversing okay. Moving all extremities independently Extremities: No edema. No tenderness on palpation of bilateral hip. Results & Data Results & Data ([facility]) Vital Signs (Past 12 Hours) Vital Signs Temp Pulse Resp BP BP Pulse Ox O2 Del Method 03/15/22 08:56 Room Air 03/15/22 08:00 36.6 C 66 14 112/71 98 Room Air 03/14/22 23:23 36.7 C 67 18 107/73 98 (1) Urinary tract infection Hematuria presence: without hematuria Urinary tract infection type: site unspecified Qualified Code(s): N39.0 - Urinary tract infection, site not specified (2) Dementia Dementia behavioral disturbance: without behavioral disturbance Dementia type: unspecified type Qualified Code(s): F03.90 - Unspecified dementia without behavioral disturbance
[2022-03-15] MEDS: DOCUSATE SODIUM 100 MG CAP PO SCH ×2 (16:50→21:29)
[2022-03-15] MEDS: POLYETHYLENE (MIRALAX) 17 GM PACK PO SCH (16:50)
[2022-03-16] MEDS: ACETAMINOPHEN 325 MG TAB PO SCH ×2 (00:25→05:51)
[2022-03-16] MEDS: LIDOCAINE 5% 1 PATCH TD SCH (09:22)
[2022-03-16] MEDS: DOCUSATE SODIUM 100 MG CAP PO SCH (09:22)
[2022-03-16] MEDS: HEPARIN SOD 5,000 UNIT/0.5 ML VIAL SQ SCH (09:22)
[2022-03-16] MEDS: MEMANTINE HCL 10 MG TAB PO SCH (09:23)
[2022-03-16] MEDS: POLYETHYLENE (MIRALAX) 17 GM PACK PO SCH (09:23)
[2022-03-16] MEDS: METOPROLOL SUCC 50MG EXT REL TAB PO SCH (09:24)
[2022-03-16] MEDS: QUEtiapine FUMARATE 25 MG TABLET PO SCH (09:24)
[2022-03-16] MEDS: CINACALCET HCL 30 MG TAB PO SCH (09:25)
--- NOTE | 2022-03-16 16:31 | Discharge Summary ---
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 Pt had covid-19 2 weeks ago. Since then she been getting continually more weak and confused. She lives at home with her son. Son and daughter are at bedside. When she had covid her sx were mostly cough, aches, fatigue, weakness and headache. She tested positive with at home test two weeks ago. Over past 2 weeks she stayed upstairs in her sons house due to not feeling well and weakness. Over the last 2 weeks she has been complaining of R hip pain. No recent fall. Pt did complain of dysuria last night, but family denies known hematuria, increased urg/freq with urination, f/c/s, chest pain, sob, n/v/d. She has been using ibuprofen for hip pain. Family states 2 weeks ago she complains of worsened vision loss. No hx of UTI in past. They do not feel its safe for her to return home and are looking at possible placement in the future. In ED patient remained hemodynamically stable but was much more confused and forthcoming per family. Normally despite dementia she is very pleasant and cooperative. Lab work revealed H&H 16.8 and 48.4, K3.2, BUN 24, creatinine 1.26, calcium 11.2 and urinalysis consistent with UTI. She is still testing positive for SARS-CoV-2. Due to patient reporting vision loss she did u nder CT of her head which was negative for any acute abnormality. Chest x-ray did not show any acute disease. Hip and pelvis x-ray reveal lucency around the intramedullary nail suggesting loosening of prior right hip surgery. She did receive IV fluids and 2 g of IV Rocephin in ED. Admission Exam Per Admitting Provider Physical Exam: Vitals signs as noted above General Appearance: Thin, frail, elderly, no apparent distress Head: normocephalic, Atraumatic Eyes: normal inspection, EOMI Neck: supple, Trachea midline Respiratory/Chest: Normal breath sounds, CTA, No accessory muscle use Cardiovascular: S1, S2, No murmur Abdomen/GI:Soft, Non tender, Bowel sounds present Extremities/Musculoskeletal:normal inspection, no edema, R hip tender. Neurologic/Psych:AAOx1, grossly no focal neurological deficits, +Dementia Skin: normal color, warm Principal Diagnosis E Coli UTI, PTH mediated hypercalcemia, Suspected primary hyperparathyroidism, Discharge Exam General: Lying comfortably in bed, not in distress, on room air HEENT: Blind, MMM Chest: Clear breath sounds bilaterally, no wheezes or crackles CVS: Regular rate and rhythm, normal heart sounds, no murmur Abdomen: Soft, non tender, not distended, normal bowel sounds Neuro: Awake, alert, oriented, conversing well, non focal Extremities: No edema Psych: Pleasant, demented Discharge Data Allergies Allergy/AdvReac Type Severity Reaction Status Date / Time No Known Allergies Allergy Unknown Verified 12/17/19 13:21 Consultations 03/05/22 17:39 ED Decision to Admit Stat 03/05/22 18:02 Consult Orthopedic Surgery Routine Ordered Studies 03/05/22 17:58 CT head/brain wo con Stat 03/08/22 16:13 CT hip RT w con Routine Hospital Course (1) Weakness: (2) Urinary tract infection: (3) ROSA (acute kidney injury): (4) Hypercalcemia: (5) SARS-CoV-2 positive: (6) Dementia: Plan This is an 81 yr old F who has hx of macular degeneration, dementia, HTN, 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 Found to have UTI Ecoli UTI-pansensitive. S/p 7 days of keflex Right hip pain with abnormal imaging CT right hip shows -1. A 3.3 x 2.0 x 2.5 cm peripheral enhancing hypodense collection within the soft tissues of the right lateral hip which appears to abut the lateral surface of the proximal femur/greater trochanter. This likely represents an abscess given the surrounding inflammatory change. 2. Mild periprosthetic lucency within the proximal portion of the right femoral intramedullary lelia which is in close proximity to the suspected abscess. Therefore, secondary infection would be the diagnosis of exclusion. - Discussed with ortho who doubts infection. CRP, ESR, WBC, procal negative. Recommended indium scan which can not be done in this hospital - Per orthopedics likely not infectious, will need to obtain an Indium 111 scan as outpatient to determine fluid collection - Ortho feels MRI likely not helpful due to artifact from hardware - F/u with Ortho as OP for indium bone scan Generalized Weakness ( 2/2 to recent COVID-19 and UTI)-PT/OT recommended rehab. Sars Cov 2 +:asymptomatic. Covid positive for more than 2 weeks now. Likely virus and non infectious. Tested positive on home test over 2 weeks ago Acute on Chronic CKD 3 -likely pre renal in setting of dehydration. resolved. Cr 0.89 PTH mediated hypercalcemia, suspected primary hyperparathyroidism -PTH 91.3. Ca 10.4 but when corrected for albumin, Ca > 11, possibly contributing to worsened dementia - Discussed with Endo Dr. Ponce- Given age, dementia not surgical candidate - recommended starting cinacalcet 30mg once daily - Monitor calcium corrected albumin once a week until stable calcium in the 9- 9.5 range - Once a stable dose of cinacalcet is determined and pt maintains 9-9.5 corrected calcium can then check every 1-2 months - Hypercalcemia resolved with current dose of cinacalcet, continue with OP calcium monitoring and follow up with endo as OP Vit D deficiency- 25-OH-Vit D 19.6. started on high dose weekly Vit D supplementation for 8 weeks. Continue maintenance Vit D after that. F/u with PCP Hypokalemia-resolved. Polycythemia-relative due to dehydration. resolved. Alzheimer dementia without behavioral disturbance-diagnosed 6 yrs ago. Increased confusion from baseline, could be due to her visual issues and UTI. Plan to see ophthalmology as OP per daughter. - continue namenda and seroquel HTN-BP well controlled off of home HCTZ and aldactone which were discontinued at discharge. Continue metoprolol Total Time Total Time Spent Total Time Spent (In Minutes): 38 Discharge Plan Discharge Items Patient Disposition: Transfer [facility] Reason For Visit: UTI Discharge Diagnosis: UTI, PTH mediated hypercalcemia, abnormal right hip CT Activity: Resume your previous activity Non-emergency contact: Primary Care Provider Call non-emergency contact if: you have any medication questions, your symptoms worsen, your pain is concerning for you and you have a fever Follow-up/Referrals: Toni Alvarado MD [Physician] - (PTH mediated hypercalcemia, hyperparathyroidism) Curt Moss DO [Surgeon] - (abnormal right CT hip- for OP indium bone scan) Seb Javier PA-C [Primary Care Provider] - (hyperparathyroidism hypercalcemia, vit D deficiency, abnormal right CT hip) Diet: Regular Addtl Attending Provider Instructions: You have completed the antibiotic for your urine infection You have hypercalcemia due to hyperparathyroidism You have been started on cinacalcet per endocrinology and calcium is down to normal Recommend checking your blood work (BMP) weekly for couple weeks and if calcium remains normal and then monthly Follow up with endocrinology for further management You have also been started on vitamin D for low vitamin D level Your CT right hip was abnormal. Orthopedic recommends outpatient indium bone scan. Please follow up with them. Stop your blood pressure medications as your blood pressure has been normal here without them Follow up with your family doctor Pending Studies at Discharge: No Stand-Alone Forms: My [facility] Skilled Items Patient informed of condition?: Yes DNR: Yes Discharge Level of Care: Skilled Communicable Disease: No Discharge Prognosis: Stable Lines: None Urinary Catheter: No Medications and DC Order Prescriptions: New polyethylene glycol 3350 [Miralax] 17 gram Powder In Packet 17 g PO DAILY Qty: 30 0RF cinacalcet 30 mg Tablet 30 mg PO DAILY Qty: 30 0RF ergocalciferol (vitamin D2) 1,250 mcg (50,000 unit) Capsule 50,000 unit PO Q7D@0900 Qty: 7 0RF Continued metoprolol succinate [Toprol XL] 50 mg Tablet Extended Release 24 Hr 50 mg PO DAILY Qty: 0 memantine [Namenda] 10 mg tablet 10 mg PO BID quetiapine 25 mg tablet 25 mg PO BID mirtazapine 30 mg tablet 30 mg PO HS Discontinued spironolactone 25 mg tablet 12.5 mg PO DAILY hydrochlorothiazide 25 mg tablet 25 mg PO DAILY Discharge Orders: Discharge Order (Routine); Ordered 03/16/22 Ordered By: Michael Soto/Other Patient Handouts: UTIs Understanding Admission Data Admit Date/Time: 03/05/22 17:50 Attending Provider: Michael Cid Admit Provider: Arthur Lombardo Primary Care Provider: Seb Javier Other Providers: Isidoro Max ; Arthur Lombardo ; Shira Reynaga ; Neeta Le Other Interventions: Discharge Summary Assessment (RN) Last Done: 03/16/22 10:19
== END 2022-03-16 11:26 | DRG 689 ==
LOC: ED 11:44 → 3W 17:50 → SUATTDRO 17:50 → 3W 23:11